=== PATIENT | female | born 1940 | race Caucasian/White ===

== ENCOUNTER 2025-05-15 15:50 | Emergency (ER) | payer OTHER, SELFPAY ==
[2025-05-15 15:54] VITALS: BP 123/65
--- NOTE | 2025-05-15 18:14 | ED.MUSCINJ ---
HPI-Injury
General
Chief Complaint: Fall
Source: patient and family (Son at bedside)
Exam Limitations: none
Time Seen by Provider: 05/15/25 17:52
History of Present Illness-Injury
Initial Injury comments:
84-year-old female with history of recent stroke, now staying with her son who is at bedside and states she got up from the couch earlier today, her she was not on her foot completely and she tripped and fell injuring the left ankle. He states she
struck her forehead but not significantly, there was no loss of consciousness. Her ankle has swollen and she is having difficulty weightbearing. She denies headache, neck pain or any other injury.
Past History
Past History
ED Past Medical History: CVA, GERD, Hypercholesterolemia and Psychiatric (depression)
ED Past Surgical History: Orthopedic
Review of Systems
Review of Systems
Allergies reviewed?: Yes
All Other Systems: ROS reviewed and negative except as documented in HPI and ROS
Musculoskeletal: Reports other (pain and swelling left ankle)
Phy Exam
Physical Exam
Physical Exam:
GENERAL: No acute distress. A&Ox3.
CONSTITUTIONAL: Afebrile.
Head: Normocephalic/atraumatic
EYES: clear, conjunctivae normal
ENMT: moist mucus membranes, Pharynx nl
RESPIRATORY: Regular respirations, nonlabored, lungs clear.
CARDIOVASCULAR: Regular rate and rhythm, no murmurs, no rubs.
GI: Soft, nontender
MUSCULOSKELETAL: Left lateral ankle with mild to moderate swelling and ecchymosis. Distal neurovascular intact. Mildly limited range of motion. Moves with ease. Well perfused. No edema
SKIN: Warm, dry, pink
PSYCH: Normal mood and affect. Well kept, interactive and appropriate
NEUROLOGIC: Awake, alert and oriented. No focal neurological deficits
Injury Course
Orders/Labs/Results
Orders:
Orders
05/15/25 15:59
CR Ankle - Left Min 3 Views Urgent
Comment:
Reason For Exam: Injury
05/15/25 18:14
Nolan Wrap Left-Treatment ONCE
Air Splint Left-Treatment ONCE
Procedures
Splint Check
Splint checked by provider?: Yes
Circulation/Movement/Sensation post splint application: brisk cap refill and full sensation
MDM/Problems Addressed
Differential Diagnosis Includes:
fx vs ST injury left ankle
MDM/Problems Addressed:
84-year-old female with history of recent stroke, now staying with her son who is at bedside and states she got up from the couch earlier today, her she was not on her foot completely and she tripped and fell injuring the left ankle. He states she
struck her forehead but not significantly, there was no loss of consciousness. Her ankle has swollen and she is having difficulty weightbearing. She denies headache, neck pain or any other injury.
X-ray of left ankle initially read by this examiner: No acute bony abnormality, soft tissue swelling noted laterally.
Pt ambulated out with steady gait after nolan wrap and air splint applied
*Pulse Oximetry
SaO2: 99
Oxygen Mode of Delivery: Room air
Patient hypoxic: not evaluated
*Critical Care Note
Total Time (30-74mins, 75-104mins- exclusive of procedures): Not Applicable
ED Attending Note
-
Portions of this chart may have been created with voice recognition software.� Occasional wrong word or��sound alike� substitutions may have occurred due to the inherent limitations of voice recognition software.
Discharge Plan
Departure
Patient Disposition: Home (Routine Discharge)
Date of Disposition: 05/15/25
Time of Disposition: 18:13
Patient with high blood pressure during this ER visit?: No
Condition: Good
Discharge Problem:
Soft tissue injury of left ankle
Instructions: Ankle sprain - ED discharge instructions
Referrals:
Lew Koenig MD [Active, Orthopedics] - As needed
UNKNOWN - PT DOES,NOT KNOW [Family Provider]
Activity Restrictions/Additional Instructions:
As we discussed, wear the Nolan wrap and air splint as needed for comfort and support.
Make an appointment to see the orthopedic doctor if the ankle is not a lot better in 1 week or not 100% better in 3 to 4 weeks.
Tylenol ibuprofen as needed for pain.
Rest as much as you can for the next 2 days with the foot elevated to the level of your heart and cold compress 20 minutes off and on is much as possible while awake.
Interventions
Interventions:
*ED- Fall Risk Assessment Last Done: 05/15/25 16:43
*Nursing Disposition Last Done: 05/15/25 18:52
ED-Musculoskeletal Assessment Last Done: 05/15/25 16:43
Discharge Date and Time
Discharge Date/Time: 05/15/25 20:20
Print Language: UZBEK
[2025-05-15 18:48] VITALS: BP 126/72
== END 2025-05-15 20:20 | disposition home or self-care (01) ==
LOC: EMR 15:50
PROVIDERS: EMERGENCY PHYSICIAN Emergency Medicine
DX: S99.912A Unspecified injury of left ankle, initial encounter (principal); X58.XXXA Exposure to other specified factors, initial encounter; K21.9 Gastro-esophageal reflux disease without esophagitis; E78.00 Pure hypercholesterolemia, unspecified; Z86.73 Personal history of transient ischemic attack (TIA), and cerebral infarction without residual deficits
CPT/HCPCS: 99283; 29515; 73610

== ENCOUNTER 2025-05-19 13:51 | Inpatient (IN) | payer OTHER, SELFPAY ==
[2025-05-19] VITALS (8 sets, daily range): BP systolic 98–146; BP diastolic 48–96; BMI 19.6; BMI 18.6
--- NOTE | 2025-05-19 08:40 | ED.GENMED ---
History of Present Illness
<Kassidy Tom PA-C - Last Filed: 05/19/25 12:24>
General
Chief Complaint: Overdose Unintentional
Source: patient
Exam Limitations: none
Time Seen by Provider: 05/19/25 08:41
Nursing documentation reviewed up to this point in time: agreed with
History of Present Illness
History of Present Illness:
84 Y/O F
h/o frontal stroke february 2025 with cognitive deficits mostly
doing well physically
living with son
has home care and OT
and was just told to try to get her to start seeing if she can do some things on her own, like take her own meds; he fillled a week long pill dispenser box with her meds
this morning pt got up before him, and took all of the pills in the container rather than just today's pills
pt feels fine, she drank coffee and has no complaints
she says 'i don' tknow why i did that. i was n't trying to kill myself'
son says this is her baseline; she has better days than this but this is typical behavior for her
no fatigue, vomiting, abd pain, weakness, wackiness new from baseline
meds ingested:
zyrtec 10 mg #6
ASA 325 mg #6
Atorvastatin 80 mg #6
Senna #12
Famotidine 20 mg #6
Prozac 20 mg #6
metformin 500 mg #6
Past History
<Kassidy Tom PA-C - Last Filed: 05/19/25 12:24>
Past History
ED Past Medical History: CVA, GERD, Hypercholesterolemia and Psychiatric (depression)
ED Past Surgical History: Orthopedic
Social History
Tobacco: Former smoker
Alcohol: None
Drug: None
Personal: Single
Living: with family
Review of Systems
<Kassidy Tom PA-C - Last Filed: 05/19/25 12:24>
Review of Systems
Allergies reviewed?: Yes
All Other Systems: Not applicable
Phy Exam
<Kassidy Tom PA-C - Last Filed: 05/19/25 12:24>
Physical Exam
Physical Exam:
GENERAL: Alert , in no apparent distress eccentric
EYE: pupils equal and reactive
NECK: Supple
ENT: o/p clr, mmm.
CARDIAC: Bradycardic
LUNGS: Clear breath sounds bilaterally, no acute respiratory distress, no wheezes/rales/rhonchi
ABDOMEN: Soft, without focal tenderness, no r/g, no cvat, normal bowel sounds
NEUROLOGICAL: Alert and oriented x 3, no focal neuro deficits; some situational confusion but otherwise nonfocal no deficits
SKIN: Warm and dry, skin intact.
MUSCULOSKELETAL: No edema, well perfused. neg tylor's sign
PSYCH: eccentric
Course
<Kassidy Tom PA-C - Last Filed: 05/19/25 12:24>
Orders/Labs/Results
Orders:
Orders
05/19/25 08:49
Electrocardiogram (*1) Urgent
Reason for Study: QTc Monitoring
EKG- Treatment ONCE
05/19/25 09:42
Acetaminophen Urgent
Alcohol Urgent
Complete Blood Count/With Diff Urgent
Comprehensive Metabolic Panel Urgent
Creatine Phosphokinase Urgent
Lactic Acid Urgent
Lipase Urgent
Comment: ADD ON
Salicylate Urgent
Venous Blood Gas Urgent
%Oxygen/Room Air: 21
05/19/25 10:22
Add On- LAB Urgent
Tests Added?: LIPASE
05/19/25 10:46
0.9% Sodium Chloride 500 ml [Nss] 500 ml IV BOLUS
05/19/25 11:43
US Abdomen Complete/Upper Urgent
Comment:
Reason For Exam: elevated lfts
05/19/25 11:44
Add On- LAB Urgent
Tests Added?: alcohol level
05/19/25 11:54
Acetylcysteine [Acetadote] 8,260 mg 0.45% Sodium Chloride 250 ml [0.45%NaCl] 200 ml IV NOW
05/19/25 13:00
Acetylcysteine [Acetadote] 2,760 mg 0.45% Sodium Chloride 500 ml [0.45%NaCl] 500 ml IV ONCE
05/19/25 13:03
Admit/Transfer Patient As Directed
Co-Sign Provider:
Level of Care: Inpatient admission
Assign to:: Medical/Surgical
Physician / Group: Alfredo
Diagnosis: Transaminitis
Reason for Hospitalization: NAC treatment
Expected length of stay greater than two midnights?: Yes
ELOS- Estimated Length of Stay in days: 3
I certify the patient meets the requirements for IP care: Yes
PRN Pain Medication Management As Directed
May give lesser potent ordered pain med per pt: Yes
preference::
Protocol:: Medication orders for pain may be administered in a
manner that supports deferring to patient preference
when the pt is:
- Requesting an ordered lesser potent pain medication.
Least to most potent pain medications are defined
as: acetaminophen < NSAID < tramadol < opioids
(morphine, oxycodone, hydromorphone).
- Requesting a lesser dose of the same medication IF
ORDERED.
- Requesting a less intrusive route of administration
if both routes are prescribed by the provider (PO <
IV).
05/19/25 13:04
Code Status As Directed
Resuscitation Status: Full Code
05/19/25 13:06
Add On- LAB Urgent
Tests Added?: CPK
Obtain Records As Directed
Dates of Information to be Released: February 2025
Type of Information Requested: Discharge Summary
Lab Results
If Other, list type of info requested: LFTS and Creatinine
Obtain Records from: [facility]
05/19/25 17:00
Acetylcysteine [Acetadote] 5,500 mg 0.45% Sodium Chloride 1000 ml [0.45%NaCl] 1,000 ml IV ONCE
Abnormal Lab Results
05/19/25
09:42
WBC 4.6 L 10^3/uL
(4.8-10.8)
RBC 3.89 L 10^6/uL
(4.20-5.40)
Hgb 11.2 L g/dL
(12.0-16.0)
Hct 34.3 L %
(37.0-47.0)
MCHC 32.7 L g/dL
(33.0-37.0)
Absolute Lymphs (auto) 0.9 L 10^3/uL
(1.2-3.4)
Lymphocytes % 18.6 L %
(20.5-51.1)
Eosinophils % 8.2 H %
(0-6)
VBG pO2 59 H mmHg
(30-50)
Chloride 109 H mmol/L
(98-107)
BUN 41 H mg/dl
(7-17)
Creatinine 1.3 H mg/dL
(0.6-1.0)
Glucose 106 H mg/dl
(70-99)
AST 577 H* U/L
(14-36)
ALT 606 H* U/L
(0-35)
Alkaline Phosphatase 306 H U/L
(38-126)
Acetaminophen < 10 L ug/ml
(10-30)
05/19/25 09:42
05/19/25 09:42
Vital Signs
Initial and Last Documented VS:
Initial Vital Signs
Temp Pulse BP Pulse Ox
98.4 F 61 98/48 95
05/19/25 08:32 05/19/25 08:32 05/19/25 08:32 05/19/25 08:32
Last Documented Vital Signs
Temp Pulse Resp BP Pulse Ox
98.4 F 54 20 133/75 99
05/19/25 08:32 05/19/25 11:21 05/19/25 11:00 05/19/25 11:21 05/19/25 11:21
<Kirk Duckworth, DO - Last Filed: 05/19/25 13:14>
Orders/Labs/Results
Orders:
Orders
05/19/25 08:49
Electrocardiogram (*1) Urgent
Reason for Study: QTc Monitoring
EKG- Treatment ONCE
05/19/25 09:42
Acetaminophen Urgent
Alcohol Urgent
Complete Blood Count/With Diff Urgent
Comprehensive Metabolic Panel Urgent
Creatine Phosphokinase Urgent
Lactic Acid Urgent
Lipase Urgent
Comment: ADD ON
Salicylate Urgent
Venous Blood Gas Urgent
%Oxygen/Room Air: 21
05/19/25 10:22
Add On- LAB Urgent
Tests Added?: LIPASE
05/19/25 10:46
0.9% Sodium Chloride 500 ml [Nss] 500 ml IV BOLUS
05/19/25 11:43
US Abdomen Complete/Upper Urgent
Comment:
Reason For Exam: elevated lfts
05/19/25 11:44
Add On- LAB Urgent
Tests Added?: alcohol level
05/19/25 11:54
Acetylcysteine [Acetadote] 8,260 mg 0.45% Sodium Chloride 250 ml [0.45%NaCl] 200 ml IV NOW
05/19/25 13:00
Acetylcysteine [Acetadote] 2,760 mg 0.45% Sodium Chloride 500 ml [0.45%NaCl] 500 ml IV ONCE
05/19/25 13:03
Admit/Transfer Patient As Directed
Co-Sign Provider:
Level of Care: Inpatient admission
Assign to:: Medical/Surgical
Physician / Group: Alfredo
Diagnosis: Transaminitis
Reason for Hospitalization: NAC treatment
Expected length of stay greater than two midnights?: Yes
ELOS- Estimated Length of Stay in days: 3
I certify the patient meets the requirements for IP care: Yes
PRN Pain Medication Management As Directed
May give lesser potent ordered pain med per pt: Yes
preference::
Protocol:: Medication orders for pain may be administered in a
manner that supports deferring to patient preference
when the pt is:
- Requesting an ordered lesser potent pain medication.
Least to most potent pain medications are defined
as: acetaminophen < NSAID < tramadol < opioids
(morphine, oxycodone, hydromorphone).
- Requesting a lesser dose of the same medication IF
ORDERED.
- Requesting a less intrusive route of administration
if both routes are prescribed by the provider (PO <
IV).
05/19/25 13:04
Code Status As Directed
Resuscitation Status: Full Code
05/19/25 13:06
Add On- LAB Urgent
Tests Added?: CPK
Obtain Records As Directed
Dates of Information to be Released: February 2025
Type of Information Requested: Discharge Summary
Lab Results
If Other, list type of info requested: LFTS and Creatinine
Obtain Records from: [facility]
05/19/25 17:00
Acetylcysteine [Acetadote] 5,500 mg 0.45% Sodium Chloride 1000 ml [0.45%NaCl] 1,000 ml IV ONCE
Abnormal Lab Results
05/19/25
09:42
WBC 4.6 L 10^3/uL
(4.8-10.8)
RBC 3.89 L 10^6/uL
(4.20-5.40)
Hgb 11.2 L g/dL
(12.0-16.0)
Hct 34.3 L %
(37.0-47.0)
MCHC 32.7 L g/dL
(33.0-37.0)
Absolute Lymphs (auto) 0.9 L 10^3/uL
(1.2-3.4)
Lymphocytes % 18.6 L %
(20.5-51.1)
Eosinophils % 8.2 H %
(0-6)
VBG pO2 59 H mmHg
(30-50)
Chloride 109 H mmol/L
(98-107)
BUN 41 H mg/dl
(7-17)
Creatinine 1.3 H mg/dL
(0.6-1.0)
Glucose 106 H mg/dl
(70-99)
AST 577 H* U/L
(14-36)
ALT 606 H* U/L
(0-35)
Alkaline Phosphatase 306 H U/L
(38-126)
Acetaminophen < 10 L ug/ml
(10-30)
05/19/25 09:42
05/19/25 09:42
Vital Signs
Initial and Last Documented VS:
Initial Vital Signs
Temp Pulse BP Pulse Ox
98.4 F 61 98/48 95
05/19/25 08:32 05/19/25 08:32 05/19/25 08:32 05/19/25 08:32
Last Documented Vital Signs
Temp Pulse Resp BP Pulse Ox
98.4 F 54 20 133/75 99
05/19/25 08:32 05/19/25 11:21 05/19/25 11:00 05/19/25 11:21 05/19/25 11:21
<Kassidy Tom PA-C - Last Filed: 05/19/25 12:24>
MDM/Problems Addressed
Differential Diagnosis Includes:
polysubstance OD, acidemia,
MDM/Problems Addressed:
84 y/o F
recent stroke, cognitive deficits
accidentally took 6 days worth of her daily meds loaded into a weekly pill dispenser thismorning
since stroke pt living with son and he takes care of her meds
he doesn't believe she took any tylenol; but it is in the medicine cabinet; son has given occasioanl tylenol to her for headache, last was sabout 3=4 days ago, jsut 2
here awake and alert and her baseline; no abd pain, no vmoiting, no weakness or confusion or sedation
i spoke with dr. buckner from [facility] who recommended repeating salycilate level in 2 hours after first one and mointor for side effects but that after 6 hour obs she could possibly go home
however LFTs are moderately elevated
no known alcohol abuse
at that point considered late tylenol ingestion
son doesn't think so but agreeable to NAC
i spoke back with dr. buckner who felt it necessary
will admit
<Kassidy Tom PA-C - Last Filed: 05/19/25 12:24>
*Pulse Oximetry
SaO2: 95
Oxygen Mode of Delivery: Room air
Patient hypoxic: no (99)
*Critical Care Note
Total Time (30-74mins, 75-104mins- exclusive of procedures): Not Applicable
ED Attending Note
<Kassidy Tom PA-C - Last Filed: 05/19/25 12:24>
-
Portions of this chart may have been created with voice recognition software.� Occasional wrong word or��sound alike� substitutions may have occurred due to the inherent limitations of voice recognition software.
<Kirk Duckworth DO - Last Filed: 05/19/25 13:14>
ED Attending Note
Patient seen and examined by attending physician: Yes
I performed the substantive portion of visit, reviewed & personally made and approve the management plan that is documented in note by myself or ABRAHAM.: Yes
ED Attending Note:
Seen with PA examined independently accidental drug overdose most pronounced abnormalities elevated LFTs with normal acetaminophen PA providers been in contact with poison control/toxicology will be started on Mucomyst, admitted for monitoring
Discharge Plan
Departure
Patient Disposition: Admit
Date of Disposition: 05/19/25
Time of Disposition: 11:43
Admit to: IMU
Presentation/result/management discussed w/ accepting MD/DO: Hospitalist
Condition: Fair
Covid-19: Not Applicable
Discharge Problem:
Transaminitis, Accidental overdose
Prescriptions:
No Action
atorvastatin [Lipitor] 80 mg Tablet
80 mg PO DAILY
sennosides [senna] 8.6 mg Tablet
17.2 mg PO DAILY
acetaminophen [Tylenol] 325 mg Tablet
650 mg PO Q6HPRN PRN (Reason: HEADACHES)
cetirizine [Zyrtec] 10 mg Tablet
10 mg PO DAILY
famotidine [Pepcid] 20 mg Tablet
20 mg PO DAILY
fluoxetine [Prozac] 20 mg Capsule
20 mg PO DAILY
metformin 500 mg Tablet Extended Release 24 Hr
500 mg PO DAILY
aspirin 325 mg Tablet
325 mg PO DAILY
Referrals:
Meir Mendez DO [Family Provider, Nephrology]
Interventions
Interventions:
*Risk Screen - Suicide Last Done: 05/19/25 08:32
*General Assessment Last Done: 05/19/25 08:32
*Neglect/Abuse Screening Last Done: 05/19/25 08:32
Discharge Date and Time
Print Language: GREEK
[2025-05-19 09:54] LABS: Venous Blood Gas B.E. -1.9 mmol/L (-4 to +4); Venous Blood Gas O2 Sat % 91.6 %
[2025-05-19 09:57] LABS: Hematocrit 34.3 % (37.0-47.0); Hemoglobin 11.2 g/dL (12.0-16.0); Mean Corp Hgb Conc. 32.7 g/dL (33.0-37.0); Mean Corpuscular Volume 88.2 fL (81.0-99.0); Nucleated Red Blood Cells % 0 %; Platelet Count 203 10^3/uL (130-400); Red Cell Dist. Width 13.2 % (11.5-14.5)
[2025-05-19 10:06] LABS: ALT (SGPT) 606 U/L (0-35); AST (SGOT) 577 U/L (14-36); Acetaminophen < 10 ug/ml (10-30); Albumin 4.4 g/dl (3.5-5.0); Alkaline Phosphatase 306 U/L (38-126); Blood Urea Nitrogen 41 mg/dl (7-17); Calcium 9.8 mg/dl (8.4-10.2); Carbon Dioxide 24 mmol/L (22-30); Chloride 109 mmol/L (98-107); Estimated Creatinine Clearance 28 ml/min; Glucose 106 mg/dl (70-99); Potassium 4.7 mmol/L (3.5-5.1); Salicylate 17.3 mg/dl (2.0-20.0); Sodium 142 mmol/L (135-145); Total Protein 6.9 g/dl (6.3-8.2); eGFR 40.80
[2025-05-19] MEDS: NSS 500 IV (11:20)
[2025-05-19 11:27] LABS: Lipase 220 U/L (23-300)
--- NOTE | 2025-05-19 12:11 | HPS.HSE ---
Family Physician
-
Family Physician: Meir Mendez
Chief Complaint
-
Accidental Overdose
History of Present Illness
Patient is an 84 y/o female past medical history of recent frontal stroke with residual cognitive impairment, hyperlipidemia, diabetes mellitus and depression who presents following an accidental overdose. Following patient's stroke her son had been
dispensing her medications daily. In an effort to allow patient more independence her son filled a week long pill box with her medications. This morning patient got up before her son and took all the pills in the box instead of just today's pills.
Work-up in the ED revealed significantly elevated AST and ALT. Patient does not drink alcohol and there are no reports that patient took an excessive amount of Tylenol. It does appear that she was recently started on a statin following her stroke
in February. Patient reports no complaints at the present time.
Medical History
Past Medical History
Past Medical History: Reports Other
Additional Past Medical History:
Frontal CVA February 2025
Cognitive Impairment
Diabetes Mellitus, Type II
Hyperlipidemia
Depression
GERD
Past Surgical History: Reports Other
Additional Past Surgical History:
Bilateral Knee Replacements
Social History
Tobacco: Former Smoker (Quit Early 2024)
Alcohol: None
Family History
Family History: Not pertinent
Allergies / Home Medications
Allergies reflects when Allergies were last updated in [facility].
Home Medications with original date entered in [facility]
Allergy/Medication List:
Allergies
Allergy/AdvReac Type Severity Reaction Status Date / Time
No Known Allergies Allergy Unverified 05/15/25 16:00
Home Medications
acetaminophen 325 mg tablet (Tylenol) 650 mg PO Q6HPRN PRN HEADACHES 05/19/25
aspirin 325 mg tablet 325 mg PO DAILY Heart Disease/Condition 05/19/25
atorvastatin 80 mg tablet (Lipitor) 80 mg PO DAILY High Cholesterol 05/19/25
cetirizine 10 mg tablet (Zyrtec) 10 mg PO DAILY Allergies 05/19/25
famotidine 20 mg tablet (Pepcid) 20 mg PO DAILY Gastrointestinal Issue 05/19/25
fluoxetine 20 mg capsule (Prozac) 20 mg PO DAILY Mental Health/Anxiety 05/19/25
metformin 500 mg tablet,extended release 24 hr 500 mg PO DAILY Diabetes 05/19/25
sennosides 8.6 mg tablet (senna) 17.2 mg PO DAILY Constipation 05/19/25
Review of Systems
-
Unable to obtain full review of systems at this time due to: Other (Cognitive Impairment)
Physical Exam
Vital Signs
Vital Signs
Temp Pulse Resp BP Pulse Ox
98.4 F 54 20 133/75 99
05/19/25 08:32 05/19/25 11:21 05/19/25 11:00 05/19/25 11:21 05/19/25 11:21
Physical Exam
General: Comfortable and Conversant
HEENT: Anicteric and Moist mucous membranes
Respiratory: Clear and Non Labored Respirations
Cardiac: S1/S2 and Regular Rhythm
GI: Soft, Non Tender and Normal Bowel Sounds
Rectal: Deferred by Provider
Musculoskeletal: No Clubbing, No Cyanosis and No Edema
Skin: Warm and Dry
Neuro: Awake, Alert and No Motor Deficits
Psych: Calm
Laboratory Results
-
05/19/25 09:42
05/19/25 09:42
Laboratory Results
Lactic Acid 0.9 mmol/L (0.7-2.0) 05/19/25 09:42
Total Bilirubin 1.0 mg/dl (0.2-1.3) 05/19/25 09:42
AST 577 U/L (14-36) H* 05/19/25 09:42
ALT 606 U/L (0-35) H* 05/19/25 09:42
Alkaline Phosphatase 306 U/L (38-126) H 05/19/25 09:42
Lipase 220 U/L (23-300) 05/19/25 09:42
Data Reviewed
-
Lab Data: Labs Reviewed by me
Old Records: Reviewed
Impression/Plan
-
Transaminitis, unclear etiology
-ED reviewed with Toxicology who recommended NAC
-Hold atorvastatin
-Trend LFTs
-Repeat Salicylate and Tylenol Level in AM
Elevated Creatinine, possible ENRIQUE
-Obtain records from [place] for baseline creatinine
-Hold metformin
-Repeat creatinine in AM
Frontal CVA February 2025 with Residual Cognitive Impairment
-Hold aspirin for now
-Attempt to obtain records from [place] as to why patient is on full strength aspirin
Diabetes Mellitus, Type II
-Hold metformin
-Monitor sugars and continue coverage insulin
Hyperlipidemia
-Statin on hold
Depression
-Hold Prozac
GERD
-Hold Pepcid
DVT proph: SC Heparin
Code Status: Full Code
[2025-05-19] MEDS: ACETADOTE 241.3 MG IV (12:57)
--- NOTE | 2025-05-19 14:03 | CM ---
CM reviewed chart and met with pt bedside in ED. I also spoke to her son Enoch on the phone,
Pt has been living with Enoch and his Maribel since she had a CVA in February. Prior to that she was living alone in [place].
Son's home is Multistory home, first floor half BA, second floor BR/full BA
Independent in ADLs, personal care and ambulation at baseline. No DME.
Has been getting home PT/OT/ST, son told me the plan was to transition to outpatient therapy. He is not sure which agency they are using. No hx SNF
Enoch said plan was for her to eventually return to her home but he is not sure that is a realistic goal.
He and his work part time flexible clerk and have been using vacation time to be home with his mother.
He has looked in to Adult Day Cares and also some private caregiver agencies but has not found one yet.
He does state that finances are limited.
Discussed LTC, made him aware the cost would be out of pocket unless she qualifies for Medical Assistance.
I gave him the number for [facility] on [facility] along with list of private caregiver agencies.
PCP: Meir Guerrero
Pharmacy: [facility] (pt was using [facility] in [place])
Discharge plan: Anticipate home pending ongoing medical evaluation
--- NOTE | 2025-05-19 14:07 | W.PN.UPDATE ---
Update Note
Progress Note Update
This is an addendum to H&P written by Krista Jones on 05/19/2025. Patient seen and examined independently with PA.
84-year-old female past medical history of frontal CVA in February, chronic cognitive impairment, diabetes, hyperlipidemia, anxiety/depression, presenting with accidentally taking a weeks worth of her medications today due to confusion which is
chronic. No acute symptoms apart from some diarrhea today.
Labs show leukopenia, hemoglobin 11.2. VBG unremarkable. Labs show significant transaminitis hepatocellular pattern.
Salicylates and Tylenol level negative. Alcohol level negative.
EKG showed sinus bradycardia with first-degree AV block. QTc of 390. Creatinine 1.3.
Patient with transaminitis with concern for Tylenol overdose/statin overdose, and diarrhea secondary to senna overdose. Mild ENRIQUE. Toxicology recommended NAC and repeating salicylate and Tylenol level which can be done tomorrow. Recheck LFTs
tomorrow morning. Continue IV fluids. Hold all oral medications for now.
[2025-05-19] MEDS: ACETADOTE 513.8 MG IV (14:13)
--- NOTE | 2025-05-19 14:20 | ED.GENMED ---
History of Present Illness
General
Chief Complaint: Overdose Unintentional
Source: patient and family
Exam Limitations: none
Time Seen by Provider: 05/19/25 08:41
Nursing documentation reviewed up to this point in time: agreed with
Past History
Past History
ED Past Medical History: CVA, GERD, Hypercholesterolemia and Psychiatric (depression)
ED Past Surgical History: Orthopedic
Social History
Tobacco: Former smoker
Alcohol: None
Drug: None
Personal: Single
Living: with family
Course
Orders/Labs/Results
Orders:
Orders
05/19/25 08:49
Electrocardiogram (*1) Urgent
Reason for Study: QTc Monitoring
EKG- Treatment ONCE
05/19/25 09:42
Acetaminophen Urgent
Alcohol Urgent
Complete Blood Count/With Diff Urgent
Comprehensive Metabolic Panel Urgent
Creatine Phosphokinase Urgent
Comment: ADD ON
Lactic Acid Urgent
Lipase Urgent
Comment: ADD ON
Salicylate Urgent
Venous Blood Gas Urgent
%Oxygen/Room Air: 21
05/19/25 10:22
Add On- LAB Urgent
Tests Added?: LIPASE
05/19/25 10:46
0.9% Sodium Chloride 500 ml [Nss] 500 ml IV BOLUS
05/19/25 11:43
US Abdomen Complete/Upper Urgent
Comment:
Reason For Exam: elevated lfts
05/19/25 11:44
Add On- LAB Urgent
Tests Added?: alcohol level
05/19/25 11:54
Acetylcysteine [Acetadote] 8,260 mg 0.45% Sodium Chloride 250 ml [0.45%NaCl] 200 ml IV NOW
05/19/25 13:00
Acetylcysteine [Acetadote] 2,760 mg 0.45% Sodium Chloride 500 ml [0.45%NaCl] 500 ml IV ONCE
05/19/25 13:03
Admit/Transfer Patient As Directed
Co-Sign Provider:
Level of Care: Inpatient admission
Assign to:: Medical/Surgical
Physician / Group: Alfredo
Diagnosis: Transaminitis
Reason for Hospitalization: NAC treatment
Expected length of stay greater than two midnights?: Yes
ELOS- Estimated Length of Stay in days: 3
I certify the patient meets the requirements for IP care: Yes
PRN Pain Medication Management As Directed
May give lesser potent ordered pain med per pt: Yes
preference::
Protocol:: Medication orders for pain may be administered in a
manner that supports deferring to patient preference
when the pt is:
- Requesting an ordered lesser potent pain medication.
Least to most potent pain medications are defined
as: acetaminophen < NSAID < tramadol < opioids
(morphine, oxycodone, hydromorphone).
- Requesting a lesser dose of the same medication IF
ORDERED.
- Requesting a less intrusive route of administration
if both routes are prescribed by the provider (PO <
IV).
05/19/25 13:04
Code Status As Directed
Resuscitation Status: Full Code
05/19/25 13:06
Add On- LAB Urgent
Tests Added?: CPK
Obtain Records As Directed
Dates of Information to be Released: February 2025
Type of Information Requested: Discharge Summary
Lab Results
If Other, list type of info requested: LFTS and Creatinine
Obtain Records from: [facility]
05/19/25 17:00
Acetylcysteine [Acetadote] 5,500 mg 0.45% Sodium Chloride 1000 ml [0.45%NaCl] 1,000 ml IV ONCE
Abnormal Lab Results
05/19/25
09:42
WBC 4.6 L 10^3/uL
(4.8-10.8)
RBC 3.89 L 10^6/uL
(4.20-5.40)
Hgb 11.2 L g/dL
(12.0-16.0)
Hct 34.3 L %
(37.0-47.0)
MCHC 32.7 L g/dL
(33.0-37.0)
Absolute Lymphs (auto) 0.9 L 10^3/uL
(1.2-3.4)
Lymphocytes % 18.6 L %
(20.5-51.1)
Eosinophils % 8.2 H %
(0-6)
VBG pO2 59 H mmHg
(30-50)
Chloride 109 H mmol/L
(98-107)
BUN 41 H mg/dl
(7-17)
Creatinine 1.3 H mg/dL
(0.6-1.0)
Glucose 106 H mg/dl
(70-99)
AST 577 H* U/L
(14-36)
ALT 606 H* U/L
(0-35)
Alkaline Phosphatase 306 H U/L
(38-126)
Acetaminophen < 10 L ug/ml
(10-30)
05/19/25 09:42
05/19/25 09:42
Vital Signs
Initial and Last Documented VS:
Initial Vital Signs
Temp Pulse BP Pulse Ox
36.9 C 61 98/48 95
05/19/25 08:32 05/19/25 08:32 05/19/25 08:32 05/19/25 08:32
Last Documented Vital Signs
Temp Pulse Resp BP Pulse Ox
36.9 C 57 20 133/75 96
05/19/25 08:32 05/19/25 14:48 05/19/25 11:00 05/19/25 11:21 05/19/25 14:56
MDM/Problems Addressed
Differential Diagnosis Includes:
accidental overdose, confusion, infection
MDM/Problems Addressed:
84 y/o F CVA 02/2025 with cognitive deficits; lives w son
accidental polysubstance OD this am;due to cognifitve deficits
we do not believe she really got into any other medications, just the ones from her weekly pill dispenser that son just filled yesterday
but there is tylenol in the cabinet that is accessible; son doesn't think she got into it
no alcohol use
awakea nd alert, quirky but this is her baseline after stroke
no symptoms
no vomiting
bp stable for her low 90s
labs show chel and trasnamitiis, no known history of;
consulted tox at [facility]
unexplained LFT elevation; tyl level neg but just in case, admit for iv NAC; trend ASA level, LFTs;
(dr. buckner at [facility])
*Pulse Oximetry
SaO2: 99
Oxygen Mode of Delivery: Room air
ED Attending Note
-
Portions of this chart may have been created with voice recognition software.� Occasional wrong word or��sound alike� substitutions may have occurred due to the inherent limitations of voice recognition software.
Discharge Plan
Departure
Patient Disposition: Admit
Date of Disposition: 05/19/25
Time of Disposition: 11:43
Admit to: IMU
Presentation/result/management discussed w/ accepting MD/DO: Hospitalist
Condition: Fair
Covid-19: Not Applicable
Discharge Problem:
Transaminitis, Accidental overdose
Interventions
Interventions:
*Risk Screen - Suicide Last Done: 05/19/25 08:32
*General Assessment Last Done: 05/19/25 08:32
*Neglect/Abuse Screening Last Done: 05/19/25 08:32
*ED- Fall Risk Assessment Last Done: 05/19/25 14:46
*ED COVID-19 Vaccine History Last Done: 05/19/25 14:46
ED- Cardiac Assessment Last Done: 05/19/25 14:56
ED- Neurological Assessment Last Done: 05/19/25 14:56
ED- Pulmonary Assessment Last Done: 05/19/25 14:56
--- NOTE | 2025-05-19 16:03 | PTCARENOTE ---
pt admitted from ED to room 437-02. pt ambulated from stretcher to bed with 1 assist, slightly unsteady on feet. standing scale weight obtained. pt confused at baseline, able to answer orientation questions correctly. bed alarm in place. pt denies
pain or discomfort.
[2025-05-19] MEDS: HEPARIN 5000 UNITS SC (16:25)
[2025-05-19] MEDS: NSS 1000 IV (17:15)
[2025-05-19 17:19] LABS: Glucose - Point of Care 115 mg/dl (70-99)
[2025-05-19] MEDS: NOVOLOG FLEXPEN-LOW RESISTANCE SC (17:29)
[2025-05-19] MEDS: ACETADOTE 1027.5 MG IV (18:23)
[2025-05-19 21:40] LABS: Glucose - Point of Care 176 mg/dl (70-99)
[2025-05-20] MEDS: HEPARIN 5000 UNITS SC ×3 (00:17→15:46)
[2025-05-20] MEDS: NSS 1000 IV ×2 (04:45→15:46)
[2025-05-20 07:28] LABS: Hematocrit 29.8 % (37.0-47.0); Hemoglobin 9.8 g/dL (12.0-16.0); Mean Corp Hgb Conc. 32.9 g/dL (33.0-37.0); Mean Corpuscular Volume 87.4 fL (81.0-99.0); Platelet Count 180 10^3/uL (130-400); Red Cell Dist. Width 13.2 % (11.5-14.5)
[2025-05-20 07:38] LABS: INR 1.15; PT 15.0 Sec (11.4-14.6)
[2025-05-20 07:54] LABS: ALT (SGPT) 411 U/L (0-35); AST (SGOT) 281 U/L (14-36); Acetaminophen < 10 ug/ml (10-30); Albumin 3.4 g/dl (3.5-5.0); Alkaline Phosphatase 251 U/L (38-126); Blood Urea Nitrogen 25 mg/dl (7-17); Calcium 9.2 mg/dl (8.4-10.2); Carbon Dioxide 22 mmol/L (22-30); Chloride 114 mmol/L (98-107); Estimated Creatinine Clearance 39 ml/min; Glucose 79 mg/dl (70-99); Potassium 3.9 mmol/L (3.5-5.1); Salicylate 3.3 mg/dl (2.0-20.0); Sodium 141 mmol/L (135-145); Total Protein 5.7 g/dl (6.3-8.2); eGFR > 60.00
[2025-05-20 08:00] VITALS: BP 165/62
[2025-05-20 08:10] LABS: Glycohemoglobin (HgbA1c) 6.3 % (4.0-5.6)
[2025-05-20 08:19] LABS: Glucose - Point of Care 87 mg/dl (70-99)
[2025-05-20] MEDS: NOVOLOG FLEXPEN-LOW RESISTANCE SC ×2 (08:21→15:51)
--- NOTE | 2025-05-20 10:02 | PTOTSP ---
Speech Therapy Evaluation:
Pt with chronic risk factor of dysphagia including hx of CVA with residual cognitive deficits, compounded by accidental OD. Pt presents with grossly functional oropharyngeal swallow. No overt s/sx of aspiration, pt afebrile, on room air, and without
hx of dysphagia intervention. No chest imaging completed this admission.
Recommend:
1. Cont. regular solids and thin liquids
2. Medications as tolerated
3. General aspiration precautions
4. ROOFING LABORER to s/o - please reconsult as indicated
[2025-05-20 11:09] VITALS: BP 137/65; BP 165/62; PULSE 68; O2SAT 98
[2025-05-20 12:25] LABS: Glucose - Point of Care 158 mg/dl (70-99)
--- NOTE | 2025-05-20 12:32 | W.PN.HOSP.TC ---
Today's Communication/Plan
-
follow labs in AM
possible dc in 24 hours
home VN
Assessment / Plan
Assessment / Plan
Assessment:
Acute transaminitis
- likely from overdose on Statin; on hold
- s/p NAC protocol with Tylenol/Salicylates unremarkable now
- follow LFTs
- US without acute abd pathology
Acute diarrhea
- from Senna OD
ENRIQUE, likely from diarrhea and acute overdose
- continue IVF
- monitor labs
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
- Hold aspirin for now
Diabetes Mellitus, Type II
- Hold metformin
- Monitor sugars and continue coverage insulin
Hyperlipidemia
- statin on hold for transaminitis
Depression
- Prozac
GERD
- Pepcid
DVT proph: SC Heparin
Code Status: Full Code
Anticipated Discharge: Within 24 hours
Subjective/Interval History
-
Date of Service: May 20, 2025
resting comfortably, no complaints at present
Objective Data
-
Labs:
Laboratory Results
05/20/25
06:58
WBC 4.2 L
Hgb 9.8 L
Hct 29.8 L
Plt Count 180
PT 15.0 H
INR 1.15
Sodium 141
Potassium 3.9
Chloride 114 H
Carbon Dioxide 22
BUN 25 H
Creatinine 0.9
Glucose 79
Calcium 9.2
Total Bilirubin 0.8
AST 281 H
ALT 411 H
Alkaline Phosphatase 251 H
Vital Signs:
Vital Signs
Temp Pulse Resp BP Pulse Ox
98.3 F 56 16 165/62 97
05/20/25 08:00 05/20/25 08:00 05/20/25 08:00 05/20/25 08:00 05/20/25 08:00
I&O
05/19/25 05/20/25 05/21/25
06:59 06:59 06:59
Intake Total 2319
Balance 2319
Physical Exam
-
General: No Apparent Distress
HEENT: Normocephalic and Atraumatic
Respiratory: Negative Wheezes
Cardiac: Regular Rhythm and S1/S2
GI: Soft
Genito-urinary: No Costovertebral Tender
Neuro: AO x 3
Hematologic / Lymphatic: No Lymphadenopathy
Psych: Calm
Data Reviewed
-
Total Time Spent with Patient (in minutes): 42
Labs: Labs Reviewed by me
[2025-05-20] MEDS: NOVOLOG FLEXPEN-LOW RESISTANCE 1 UNITS SC (12:57)
[2025-05-20] MEDS: PROZAC 20 MG PO (12:58)
[2025-05-20] MEDS: ASPIRIN 325 MG PO (12:58)
--- NOTE | 2025-05-20 13:34 | CM ---
Addendum entered by Judy Goode 05/20/25 14:42:
[facility]/[place]
[phone]

Original Note:
Chart reviewed and protective services case worker met with patient and son at bedside, and spoke with patient's daughter in law by phone, per family patient has [facility], and adult daycare at discharge, patient's son has reviewed some assisted livings,
Arnav Velázquez and Ivis Conte, per family they are going to the [facility] for the weekend and they have a nurse from [facility] coming to house on Sunday at 3:30pm to review patient for services. Referral sent to [place]
[facility].
Plan; Home with family and [facility].
[2025-05-20 15:51] LABS: Glucose - Point of Care 131 mg/dl (70-99)
[2025-05-20 16:00] VITALS: BP 113/66
[2025-05-20 21:25] LABS: Glucose - Point of Care 176 mg/dl (70-99)
[2025-05-20 23:39] VITALS: BP 169/67
[2025-05-21] MEDS: HEPARIN 5000 UNITS SC ×4 (00:17→23:23)
[2025-05-21] MEDS: NSS 1000 IV (04:42)
[2025-05-21 06:22] LABS: Hematocrit 30.5 % (37.0-47.0); Hemoglobin 9.9 g/dL (12.0-16.0); Mean Corp Hgb Conc. 32.5 g/dL (33.0-37.0); Mean Corpuscular Volume 89.2 fL (81.0-99.0); Platelet Count 199 10^3/uL (130-400); Red Cell Dist. Width 13.2 % (11.5-14.5)
[2025-05-21 06:52] LABS: ALT (SGPT) 591 U/L (0-35); AST (SGOT) 489 U/L (14-36); Albumin 3.6 g/dl (3.5-5.0); Alkaline Phosphatase 388 U/L (38-126); Blood Urea Nitrogen 13 mg/dl (7-17); Calcium 9.2 mg/dl (8.4-10.2); Carbon Dioxide 24 mmol/L (22-30); Chloride 113 mmol/L (98-107); Estimated Creatinine Clearance 39 ml/min; Glucose 91 mg/dl (70-99); Potassium 4.0 mmol/L (3.5-5.1); Sodium 142 mmol/L (135-145); Total Protein 5.8 g/dl (6.3-8.2); eGFR > 60.00
[2025-05-21 07:40] LABS: Glucose - Point of Care 83 mg/dl (70-99)
[2025-05-21] MEDS: NOVOLOG FLEXPEN-LOW RESISTANCE SC ×3 (07:46→16:18)
[2025-05-21 07:57] VITALS: BP 129/58
[2025-05-21] MEDS: PEPCID 20 MG PO (08:29)
[2025-05-21] MEDS: GLUCOPHAGE XR EXTENDED RELEASE 500 MG PO (08:29)
[2025-05-21] MEDS: ASPIRIN 325 MG PO (08:29)
[2025-05-21] MEDS: PROZAC 20 MG PO (08:29)
[2025-05-21 11:23] LABS: Glucose - Point of Care 124 mg/dl (70-99)
--- NOTE | 2025-05-21 13:08 | CM ---
Patient to return to home with son, daughter in law and visiting nurses from [facility].
[facility]
[phone]
--- NOTE | 2025-05-21 13:40 | W.PN.HOSP.TC ---
Today's Communication/Plan
-
await GI evaluation
Assessment / Plan
Assessment / Plan
Assessment:
Acute transaminitis
- US without acute abd pathology
- likely from overdose on Statin; on hold
- s/p NAC protocol with Tylenol/Salicylates unremarkable now
- follow LFTs - have risen over past 24 hours. will consult GI. Consider additional NAC.
Acute diarrhea
- from Senna OD
ENRIQUE, likely from diarrhea and acute overdose
- continue IVF
- monitor labs
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
- continue daily (high dose) aspirin
Diabetes Mellitus, Type II
- Hold metformin
- Monitor sugars and continue coverage insulin
Hyperlipidemia
- statin on hold for transaminitis
Depression
- Prozac on hold
GERD
- Pepcid
DVT proph: SC Heparin
Code Status: Full Code
Anticipated Discharge: 24 - 48 hours
Subjective/Interval History
-
Date of Service: May 21, 2025
resting comfortably
no complaints
Objective Data
-
Labs:
Laboratory Results
05/21/25
05:50
WBC 3.9 L
Hgb 9.9 L
Hct 30.5 L
Plt Count 199
Sodium 142
Potassium 4.0
Chloride 113 H
Carbon Dioxide 24
BUN 13
Creatinine 0.9
Glucose 91
Calcium 9.2
Total Bilirubin 0.7
AST 489 H
ALT 591 H*
Alkaline Phosphatase 388 H
Vital Signs:
Vital Signs
Temp Pulse Resp BP Pulse Ox
98.3 F 54 16 129/58 98
05/21/25 07:57 05/21/25 07:57 05/21/25 07:57 07/03/25 07:57 05/21/25 08:00
I&O
05/20/25 05/21/25 05/22/25
06:59 06:59 06:59
Intake Total 2319
Balance 2319
Physical Exam
-
General: No Apparent Distress
HEENT: Normocephalic and Atraumatic
Respiratory: Negative Wheezes
Cardiac: Regular Rhythm and S1/S2
GI: Soft and Nontender
Musculoskeletal: No Edema
Neuro: AO x 3
Psych: Calm
Data Reviewed
-
Total Time Spent with Patient (in minutes): 41
Labs: Labs Reviewed by me
[2025-05-21 15:20] VITALS: BP 148/58
--- NOTE | 2025-05-21 15:29 | CON.GI ---
Consultation
-
Date/Time Consultation Requested: 05/21/25
Date/Time Consultation Performed: 05/21/25
Requesting Provider: Dr. Chávez
Performing Provider: Dr. Jimenez
Reason for Consultation: Elevated LFTs/DILI
Medical History
Chief Complaint / HPI
Chief Complaint: Statin/Senna Overdose, elevated LFTs
History of Present Illness:
Macrina Coto is an 84 y.o. female with pmhx recent CVA, HLD, DM2, depression admitted following an accidental overdose of her statin medication as well as senna. She reports her son takes care of her, but she accidentally took a handful of her
pills before her son woke up. He brought her into the ER for further evaluation, transaminses were found to be significantly elevated, no signs of acute liver failure. She was given NAC, which has completed. GI consulted due to persistantly elevated
LFTs. Etoh, Salicyclate and Acetaminophen levels all undetectable. She was having some diarrhea attributed to the senna OD, which has since improved. Otherwise, she is asymptomatic from a GI perspective.
BUN 41/Cr. 1.3 --> 13/0.9
Tbili 1.0 --> 0.8 --> 0.7
AST 577 --> 281---> 489
ALT 606 --> 411 --> 591
Alk phos 306 --> 251 --> 388
CK 68
Lactate 0.9
INR 1.15
Hgb 11.2 --> 9.8 --> 9.9
WBC 3.9
Plt 199
Abdominal US 05/19/25:
1. No evidence of cholelithiasis, acute cholecystitis, or biliary ductal dilation.
2. Benign adenomyomatosis, cholesterolosis within the gallbladder. No evidence of cholelithiasis, or acute cholecystitis.
3. Common bile duct measures 7 mm in diameter, likely top normal. Correlate with total bilirubin levels to exclude biliary obstruction.
4. Patent vasculature
Past Medical History
Past Medical History: Other (Frontal CVA February 2025, Cognitive Impairment, Diabetes Mellitus Type II, Hyperlipidemia, Depression, GERD)
Past Surgical History: Other (b/l knee replacements)
Social History
Tobacco: Former Smoker (Quit in early 2024)
Alcohol: None
Drug: None
Living: With Family
Family History
Family History: Reviewed & Not Pertinent
Allergies / Home Medications
Allergy/AdvReac Type Severity Reaction Status Date / Time
No Known Allergies Allergy Unverified 05/15/25 16:00
�Medication �Instructions �Recorded
acetaminophen 325 mg tablet 650 mg PO Q6HPRN PRN HEADACHES 05/19/25
(Tylenol)
aspirin 325 mg tablet 325 mg PO DAILY Heart 05/19/25
Disease/Condition
atorvastatin 80 mg tablet (Lipitor) 80 mg PO DAILY High Cholesterol 05/19/25
cetirizine 10 mg tablet (Zyrtec) 10 mg PO DAILY Allergies 05/19/25
famotidine 20 mg tablet (Pepcid) 20 mg PO DAILY Gastrointestinal 05/19/25
Issue
fluoxetine 20 mg capsule (Prozac) 20 mg PO DAILY Mental 05/19/25
Health/Anxiety
metformin 500 mg tablet,extended 500 mg PO DAILY Diabetes 05/19/25
release 24 hr
sennosides 8.6 mg tablet (senna) 17.2 mg PO DAILY Constipation 05/19/25
Review of Systems
-
All other systems: A 12 pt ROS was Negative except as stated above in HPI
Vital Signs
Temp Pulse Resp BP Pulse Ox
98.1 F 62 16 148/58 97
05/21/25 15:20 05/21/25 15:20 05/21/25 15:20 05/21/25 15:20 05/21/25 15:20
Physical Exam
Exam
General: Well Developed, Well Nourished and No Apparent Distress
GI: Soft, Non Tender, Non Distended and Normal Bowel Sounds
Results
WBC 3.9 10^3/uL (4.8-10.8) L 05/21/25 05:50
Hgb 9.9 g/dL (12.0-16.0) L 05/21/25 05:50
Hct 30.5 % (37.0-47.0) L 05/21/25 05:50
MCV 89.2 fL (81.0-99.0) 05/21/25 05:50
Plt Count 199 10^3/uL (130-400) 05/21/25 05:50
Absolute Neuts (auto) 3.0 10^3/uL (1.4-6.5) 05/19/25 09:42
PT 15.0 Sec (11.4-14.6) H 05/20/25 06:58
INR 1.15 05/20/25 06:58
Sodium 142 mmol/L (135-145) 05/21/25 05:50
Potassium 4.0 mmol/L (3.5-5.1) 05/21/25 05:50
Chloride 113 mmol/L (98-107) H 05/21/25 05:50
Carbon Dioxide 24 mmol/L (22-30) 05/21/25 05:50
BUN 13 mg/dl (7-17) 05/21/25 05:50
Creatinine 0.9 mg/dL (0.6-1.0) 05/21/25 05:50
Calcium 9.2 mg/dl (8.4-10.2) 05/21/25 05:50
Total Bilirubin 0.7 mg/dl (0.2-1.3) 05/21/25 05:50
AST 489 U/L (14-36) H 05/21/25 05:50
ALT 591 U/L (0-35) H* 05/21/25 05:50
Alkaline Phosphatase 388 U/L (38-126) H 05/21/25 05:50
Lipase 220 U/L (23-300) 05/19/25 09:42
Diagnostic Image Results:
Prior GI Procedures:
EGD:
Colonoscopy:
Assessment / Plan
-
84 y.o. female with recent CVA admitted following accidental overdose on senna and statin. Given NAC in ED, completed 05/20. No signs of SENIOR CARE.
Plan:
-s/p treatment with NAC; will give additional NAC, bag 3 now to see if any additional improvement
-abdominal US with patent vasculature, no evidence of GB/biliary pathology to account for elevated LFTs
-ENRIQUE and diarrhea improving-- suspect related to senna
-acute hepatocellular injury 2/2 DILI, persistent elevation in transaminases, hopefully plateaued today and will see improvement tomorrow
-hold all hepatotoxic meds
Data Reviewed
-
Ultrasound: Report Reviewed by me
-
-
Thank you for consultation and allowing me to participate in the patient's care. Please call the career information specialist GI physician during the after hours with any questions or concerns.
[2025-05-21 16:17] LABS: Glucose - Point of Care 132 mg/dl (70-99)
[2025-05-21] MEDS: ACETADOTE 1026.1 MG IV (16:19)
[2025-05-21 21:35] LABS: Glucose - Point of Care 113 mg/dl (70-99)
[2025-05-21 23:38] VITALS: BP 182/78
[2025-05-22 06:52] LABS: Hematocrit 34.9 % (37.0-47.0); Hemoglobin 11.4 g/dL (12.0-16.0); Mean Corp Hgb Conc. 32.7 g/dL (33.0-37.0); Mean Corpuscular Volume 87.7 fL (81.0-99.0); Platelet Count 227 10^3/uL (130-400); Red Cell Dist. Width 13.0 % (11.5-14.5)
[2025-05-22 06:56] LABS: Glucose - Point of Care 121 mg/dl (70-99)
[2025-05-22 07:36] LABS: ALT (SGPT) 633 U/L (0-35); AST (SGOT) 486 U/L (14-36); Albumin 4.1 g/dl (3.5-5.0); Alkaline Phosphatase 445 U/L (38-126); Blood Urea Nitrogen 12 mg/dl (7-17); Calcium 9.9 mg/dl (8.4-10.2); Carbon Dioxide 25 mmol/L (22-30); Chloride 107 mmol/L (98-107); Estimated Creatinine Clearance 44 ml/min; Glucose 116 mg/dl (70-99); Potassium 4.0 mmol/L (3.5-5.1); Sodium 141 mmol/L (135-145); Total Protein 6.5 g/dl (6.3-8.2); eGFR > 60.00
[2025-05-22 07:59] VITALS: BP 140/57
[2025-05-22] MEDS: NOVOLOG FLEXPEN-LOW RESISTANCE SC ×3 (08:14→16:29)
[2025-05-22] MEDS: PEPCID 20 MG PO (08:15)
[2025-05-22] MEDS: HEPARIN 5000 UNITS SC ×2 (08:15→21:47)
[2025-05-22] MEDS: ASPIRIN 325 MG PO (08:16)
[2025-05-22] MEDS: GLUCOPHAGE XR EXTENDED RELEASE 500 MG PO (08:16)
--- NOTE | 2025-05-22 08:21 | W.PN.GI.CBS2 ---
Addendum entered and electronically signed by Kassidy Jimenez, 05/22/25 14:18:
Discussed case with hepatology at [facility]. In agreement with additional bag of NAC that is currently running. No additional input to offer and no indication to transfer at this time.
Original Note:
Today's Communication / Plan
-
Continue to trend LFTs. NAC gtt. Monitor for signs of MAIDA.
Assessment / Plan
-
84 y.o. female with recent CVA admitted following accidental overdose on senna and statin. Given NAC in ED, completed 05/20. No signs of GROUP HOME.
Tbili 1.0 --> 0.8 --> 0.7--> 0.7
AST 577 --> 281---> 489--> 486
ALT 606 --> 411 --> 591 --> 633
Alk phos 306 --> 251 --> 388 --> 445
Plan:
-s/p treatment with NAC; additional NAC running for total of 16 hours, will complete today
-Transaminases rising overnight, continue to trend and monitor for signs of fulminant liver failure (none currently present)
-abdominal US with patent vasculature, no evidence of GB/biliary pathology to account for elevated LFTs
-ENRIQUE and diarrhea improving-- suspect related to senna
-acute hepatocellular injury 2/2 DILI, persistent elevation in transaminases
-hold all hepatotoxic meds
-Coags added to todays labs
Subjective
Subjective
Date of Service: May 22, 2025
Patient seen in follow-up. Transaminases slightly worse today. Started additional bag of NAC yesterday. Patient has no complaints this morning, resting comfortably. Diarrhea improving.
Objective
Data Reviewed
Laboratory Data:
Laboratory Results
05/22/25 06:42
05/22/25 06:42
Laboratory Results
PT 15.0 Sec (11.4-14.6) H 05/20/25 06:58
INR 1.15 05/20/25 06:58
Total Bilirubin 0.7 mg/dl (0.2-1.3) 05/22/25 06:42
AST 486 U/L (14-36) H 05/22/25 06:42
ALT 633 U/L (0-35) H* 05/22/25 06:42
Alkaline Phosphatase 445 U/L (38-126) H 05/22/25 06:42
Lipase 220 U/L (23-300) 05/19/25 09:42
Vital Signs and I&O:
Vital Signs
Temp Pulse Resp BP Pulse Ox
98.2 F 57 17 140/57 98
05/22/25 07:59 05/22/25 07:59 05/22/25 07:59 05/22/25 07:59 05/22/25 07:59
I&O
05/21/25 05/22/25 05/23/25
06:59 06:59 06:59
Intake Total 2119
Balance 2119
Physical Exam
Physical Exam
General: Well Developed, Well Nourished and No Apparent Distress
GI: Soft, Non Tender, Non Distended and Normal Bowel Sounds
Skin: No jaundice
NEUR: No asterixes
[2025-05-22 09:01] LABS: INR 1.03; PT 13.8 Sec (11.4-14.6)
[2025-05-22 10:46] LABS: Glucose - Point of Care 104 mg/dl (70-99)
--- NOTE | 2025-05-22 11:56 | W.PN.HOSP.TC ---
Today's Communication/Plan
-
follow AM LFTs
Assessment / Plan
Assessment / Plan
Assessment:
Acute transaminitis
- US without acute abd pathology
- likely from overdose on Statin; on hold
- avoid all hepatotoxic meds
- s/p NAC protocol with Tylenol/Salicylates unremarkable now
- additional NAC given 05/21 for rising LFTs
- follow LFTs
- monitor for signs of PENITENTIARY
- appreciate GI input
Acute diarrhea
- from Senna OD; on hold
ENRIQUE, likely from diarrhea and acute overdose
- continue IVF
- monitor labs
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
- continue daily (high dose) aspirin
Diabetes Mellitus, Type II
- Hold metformin
- Monitor sugars and continue coverage insulin
Hyperlipidemia
- statin on hold for transaminitis
Depression
- Prozac on hold
GERD
- Pepcid
DVT proph: SC Heparin
Code Status: Full Code
Anticipated Discharge: 24 - 48 hours
Subjective/Interval History
-
Date of Service: May 22, 2025
resting comfortably, no complaints
Objective Data
-
Labs:
Laboratory Results
05/22/25 05/22/25
06:42 08:37
WBC 4.7 L
Hgb 11.4 L
Hct 34.9 L
Plt Count 227
PT 13.8
INR 1.03
Sodium 141
Potassium 4.0
Chloride 107
Carbon Dioxide 25
BUN 12
Creatinine 0.8
Glucose 116 H
Calcium 9.9
Total Bilirubin 0.7
AST 486 H
ALT 633 H*
Alkaline Phosphatase 445 H
Vital Signs:
Vital Signs
Temp Pulse Resp BP Pulse Ox
98.2 F 57 17 140/57 98
05/22/25 07:59 05/22/25 07:59 05/22/25 07:59 05/22/25 07:59 05/22/25 07:59
I&O
05/21/25 05/22/25 05/23/25
06:59 06:59 06:59
Intake Total 2119
Balance 2119
Physical Exam
-
General: No Apparent Distress
HEENT: Normocephalic and Atraumatic
Respiratory: Negative Wheezes
Cardiac: Regular Rhythm and S1/S2
GI: Soft
Genito-urinary: No Costovertebral Tender
Neuro: AO x 3
Hematologic / Lymphatic: No Lymphadenopathy
Psych: Calm
Data Reviewed
-
Total Time Spent with Patient (in minutes): 41
Labs: Labs Reviewed by me
[2025-05-22 15:39] VITALS: BP 117/48
[2025-05-22 16:23] LABS: Glucose - Point of Care 141 mg/dl (70-99)
[2025-05-22 21:13] LABS: Glucose - Point of Care 132 mg/dl (70-99)
[2025-05-22 23:09] VITALS: BP 129/54
[2025-05-23 07:13] VITALS: BP 96/59
[2025-05-23 07:22] LABS: Glucose - Point of Care 115 mg/dl (70-99)
[2025-05-23 08:30] LABS: Hematocrit 32.5 % (37.0-47.0); Hemoglobin 11.0 g/dL (12.0-16.0); Mean Corp Hgb Conc. 33.8 g/dL (33.0-37.0); Mean Corpuscular Volume 87.1 fL (81.0-99.0); Platelet Count 233 10^3/uL (130-400); Red Cell Dist. Width 13.1 % (11.5-14.5)
[2025-05-23 08:42] LABS: ALT (SGPT) 479 U/L (0-35); AST (SGOT) 280 U/L (14-36); Albumin 4.0 g/dl (3.5-5.0); Blood Urea Nitrogen 20 mg/dl (7-17); Calcium 10.0 mg/dl (8.4-10.2); Carbon Dioxide 29 mmol/L (22-30); Chloride 108 mmol/L (98-107); Estimated Creatinine Clearance 39 ml/min; Glucose 114 mg/dl (70-99); Potassium 4.2 mmol/L (3.5-5.1); Sodium 140 mmol/L (135-145); Total Protein 6.5 g/dl (6.3-8.2); eGFR > 60.00
--- NOTE | 2025-05-23 08:51 | W.PN.GI.CBS2 ---
Today's Communication / Plan
-
LFTs improving. If continue to downtrend on tomorrows labs, okay for d/c and outpatient f/u
Assessment / Plan
-
84 y.o. female with recent CVA admitted following accidental overdose on senna and statin. Given NAC in ED, completed 05/20. No signs of MAIDA.
Tbili 1.0 --> 0.8 --> 0.7--> 0.7
AST 577 --> 281---> 489--> 486--> 280
ALT 606 --> 411 --> 591 --> 633--> 479
Alk phos 306 --> 251 --> 388 --> 445
INR 1.02
Plan: acute hepatocellular injury 2/2 DILI\\
-s/p treatment with NAC with additional bag completed 05/22
-Transaminases improving this morning, continue to trend, if continue to see improvement on tomorrows labs, would be okay with d/c home w/ outpatient f/u
-signs of fulminant liver failure (none currently present)
-abdominal US with patent vasculature, no evidence of GB/biliary pathology to account for elevated LFTs
-ENRIQUE and diarrhea improving-- suspect related to senna
-acute hepatocellular injury 2/2 DILI, persistent elevation in transaminases
-hold all hepatotoxic meds
Subjective
Subjective
Date of Service: May 23, 2025
No overnight events. Patient feels well, no complaints. LFTs improving today.
Objective
Data Reviewed
Laboratory Data:
Laboratory Results
05/23/25 07:52
05/23/25 07:52
Laboratory Results
PT 13.8 Sec (11.4-14.6) 05/22/25 08:37
INR 1.03 05/22/25 08:37
Total Bilirubin 0.5 mg/dl (0.2-1.3) 05/23/25 07:52
AST 280 U/L (14-36) H 05/23/25 07:52
ALT 479 U/L (0-35) H 05/23/25 07:52
Alkaline Phosphatase 445 U/L (38-126) H 05/22/25 06:42
Lipase 220 U/L (23-300) 05/19/25 09:42
Vital Signs and I&O:
Vital Signs
Temp Pulse Resp BP Pulse Ox
97.7 F 54 18 96/59 98
05/23/25 07:13 05/23/25 07:13 05/23/25 07:13 05/23/25 07:13 05/23/25 07:13
I&O
05/22/25 05/23/25 05/24/25
06:59 06:59 06:59
Intake Total 1900 / 1900 360 / 360
Balance 1900 / 1900 360 / 360
Physical Exam
Physical Exam
General: Well Developed, Well Nourished and No Apparent Distress
GI: Soft, Non Tender, Non Distended and Normal Bowel Sounds
Skin: No jaundice
NEUR: No asterixes
[2025-05-23 08:52] LABS: Alkaline Phosphatase 445 U/L (38-126)
[2025-05-23] MEDS: NOVOLOG FLEXPEN-LOW RESISTANCE SC ×3 (08:56→16:38)
[2025-05-23] MEDS: PEPCID 20 MG PO (08:58)
[2025-05-23] MEDS: ASPIRIN 325 MG PO (08:58)
[2025-05-23] MEDS: GLUCOPHAGE XR EXTENDED RELEASE 500 MG PO (08:58)
[2025-05-23] MEDS: HEPARIN 5000 UNITS SC ×2 (08:59→19:27)
--- NOTE | 2025-05-23 10:45 | W.PN.HOSP.TC ---
Today's Communication/Plan
-
if LFTs improved on tomorrows labs, can dc home and PCP f/u
Assessment / Plan
Assessment / Plan
Assessment:
Acute transaminitis
- US without acute abd pathology
- likely from overdose on Statin; on hold
- avoid all hepatotoxic meds
- s/p NAC protocol with Tylenol/Salicylates unremarkable now
- additional NAC given 05/21 for rising LFTs
- follow LFTs - improving today
- monitor for signs of LONG-TERM
- appreciate GI input
Acute diarrhea
- from Senna OD; on hold
ENRIQUE, likely from diarrhea and acute overdose
- improved with IVF
- monitor labs
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
- continue daily (high dose) aspirin
Diabetes Mellitus, Type II
- Hold metformin
- Monitor sugars and continue coverage insulin
Hyperlipidemia
- statin on hold for transaminitis
Depression
- Prozac on hold
GERD
- Pepcid
DVT proph: SC Heparin
Code Status: Full Code
Anticipated Discharge: Within 24 hours
Subjective/Interval History
-
Date of Service: May 23, 2025
well rested, no complaints. LFTs improving
Objective Data
-
Labs:
Laboratory Results
05/23/25
07:52
WBC 4.7 L
Hgb 11.0 L
Hct 32.5 L
Plt Count 233
Sodium 140
Potassium 4.2
Chloride 108 H
Carbon Dioxide 29
BUN 20 H
Creatinine 0.9
Glucose 114 H
Calcium 10.0
Total Bilirubin 0.5
AST 280 H
ALT 479 H
Alkaline Phosphatase 445 H
Vital Signs:
Vital Signs
Temp Pulse Resp BP Pulse Ox
97.7 F 54 18 96/59 98
05/23/25 07:13 05/23/25 07:13 05/23/25 07:13 05/23/25 07:13 05/23/25 07:13
I&O
05/22/25 05/23/25 05/24/25
06:59 06:59 06:59
Intake Total 1900 / 1900 360 / 360
Balance 1900 / 1900 360 / 360
Physical Exam
-
General: No Apparent Distress
HEENT: Normocephalic and Atraumatic
Respiratory: Negative Wheezes
Cardiac: Regular Rhythm and S1/S2
GI: Soft and Nontender
Neuro: AO x 3
Psych: Calm
Data Reviewed
-
Total Time Spent with Patient (in minutes): 41
Labs: Labs Reviewed by me
[2025-05-23 11:29] LABS: Glucose - Point of Care 90 mg/dl (70-99)
[2025-05-23 15:28] VITALS: BP 130/91
[2025-05-23 16:33] LABS: Glucose - Point of Care 96 mg/dl (70-99)
[2025-05-23 17:58] VITALS: BP 137/65; BP 165/62; PULSE 68; O2SAT 98
[2025-05-23 21:30] LABS: Glucose - Point of Care 100 mg/dl (70-99)
[2025-05-23 23:03] VITALS: BP 99/66
[2025-05-24 07:00] VITALS: BP 140/56
[2025-05-24 07:15] LABS: Glucose - Point of Care 100 mg/dl (70-99)
[2025-05-24] MEDS: NOVOLOG FLEXPEN-LOW RESISTANCE SC ×3 (07:28→17:21)
[2025-05-24 07:35] LABS: ALT (SGPT) 399 U/L (0-35); AST (SGOT) 230 U/L (14-36); Albumin 4.1 g/dl (3.5-5.0); Alkaline Phosphatase 403 U/L (38-126); Blood Urea Nitrogen 24 mg/dl (7-17); Calcium 10.3 mg/dl (8.4-10.2); Carbon Dioxide 28 mmol/L (22-30); Chloride 109 mmol/L (98-107); Estimated Creatinine Clearance 35 ml/min; Glucose 114 mg/dl (70-99); Hematocrit 33.3 % (37.0-47.0); Hemoglobin 10.9 g/dL (12.0-16.0); Mean Corp Hgb Conc. 32.7 g/dL (33.0-37.0); Mean Corpuscular Volume 87.6 fL (81.0-99.0); Platelet Count 251 10^3/uL (130-400); Potassium 4.0 mmol/L (3.5-5.1); Red Cell Dist. Width 13.2 % (11.5-14.5); Sodium 142 mmol/L (135-145); Total Protein 6.6 g/dl (6.3-8.2); eGFR 55.90
[2025-05-24] MEDS: PEPCID 20 MG PO (07:46)
[2025-05-24] MEDS: ASPIRIN 325 MG PO (07:46)
[2025-05-24] MEDS: HEPARIN 5000 UNITS SC (07:46)
[2025-05-24] MEDS: GLUCOPHAGE XR EXTENDED RELEASE 500 MG PO (07:47)
--- NOTE | 2025-05-24 08:45 | W.PN.GI.CBS2 ---
Today's Communication / Plan
-
LFTs improving. Okay for d/c home today with repeat labs with PCP this week
Assessment / Plan
-
84 y.o. female with recent CVA admitted following accidental overdose on senna and statin. Given NAC in ED, completed 05/20. No signs of MAIDA.
Tbili 1.0 --> 0.8 --> 0.7--> 0.7-->0.5
AST 577 --> 281---> 489--> 486--> 280--> 230
ALT 606 --> 411 --> 591 --> 633--> 479--> 399
Alk phos 306 --> 251 --> 388 --> 445--> 403
INR 1.02
Plan: acute hepatocellular injury 2/2 DILI
-s/p treatment with NAC with additional bag completed 05/22
-Transaminases continue to downtrend
-no signs of fulminant liver failure
-abdominal US with patent vasculature, no evidence of GB/biliary pathology to account for elevated LFTs
-ENRIQUE and diarrhea improving-- suspect related to senna
-acute hepatocellular injury 2/2 DILI, persistent elevation in transaminases
-hold all hepatotoxic meds
Okay for d/c home today with repeat labs with PCP this week
Subjective
Subjective
Date of Service: May 24, 2025
Patient somewhat confused this morning, seems to be . States her son is coming from the [facility] to pick her up. She offers no complaints this morning. LFTs continue to show improvement.
Objective
Data Reviewed
Laboratory Data:
Laboratory Results
05/24/25 06:58
05/24/25 06:58
Laboratory Results
PT 13.8 Sec (11.4-14.6) 05/22/25 08:37
INR 1.03 05/22/25 08:37
Total Bilirubin 0.5 mg/dl (0.2-1.3) 05/24/25 06:58
AST 230 U/L (14-36) H 05/24/25 06:58
ALT 399 U/L (0-35) H 05/24/25 06:58
Alkaline Phosphatase 403 U/L (38-126) H 05/24/25 06:58
Lipase 220 U/L (23-300) 05/19/25 09:42
Vital Signs and I&O:
Vital Signs
Temp Pulse Resp BP Pulse Ox
97.8 F 69 18 99/66 96
05/23/25 23:03 05/23/25 23:03 05/23/25 23:03 05/23/25 23:03 05/23/25 23:03
I&O
05/23/25 05/24/25 05/25/25
06:59 06:59 06:59
Intake Total 360 / 360 480 / 480
Balance 360 / 360 480 / 480
Physical Exam
Physical Exam
General: Non-toxic appearing but confused
GI: Soft, Non Tender, Non Distended and Normal Bowel Sounds
Skin: No jaundice
NEUR: No asterixes
--- NOTE | 2025-05-24 11:41 | W.PN.HOSP.TC ---
Today's Communication/Plan
-
dc to home
PCP f/u and labs
Assessment / Plan
Assessment / Plan
Assessment:
Acute transaminitis
- US without acute abd pathology
- likely from overdose on Statin; on hold
- avoid all hepatotoxic meds
- s/p extended NAC protocol with Tylenol/Salicylates unremarkable now
- repeat LFTs later this week and PCP f/u
- no signs of SENIOR LIVING
Acute diarrhea
- from Senna OD; on hold
ENRIQUE, likely from diarrhea and acute overdose
- improved with IVF
- monitor labs
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
- continue daily (high dose) aspirin
Diabetes Mellitus, Type II
- resume metformin
- Monitor sugars and continue coverage insulin
Hyperlipidemia
- statin on hold for transaminitis
Depression
- Prozac on hold
GERD
- Pepcid
DVT proph: SC Heparin
Code Status: Full Code
More than 30 minutes spent in discharge including
Final examination of the patient
Summarizing hospital stay
Instructions for continuing care to all relevant caregivers
Preparation of discharge records, prescriptions, and referral forms
Total time spent (in minutes): 41
Anticipated Discharge: Today
Subjective/Interval History
-
Date of Service: May 24, 2025
resting comfortably, no complaints
LFTs improving
Objective Data
-
Labs:
Laboratory Results
05/24/25
06:58
WBC 4.9
Hgb 10.9 L
Hct 33.3 L
Plt Count 251
Sodium 142
Potassium 4.0
Chloride 109 H
Carbon Dioxide 28
BUN 24 H
Creatinine 1.0
Glucose 114 H
Calcium 10.3 H
Total Bilirubin 0.5
AST 230 H
ALT 399 H
Alkaline Phosphatase 403 H
Vital Signs:
Vital Signs
Temp Pulse Resp BP Pulse Ox
98.5 F 51 18 140/56 97
05/24/25 07:00 05/24/25 07:00 05/24/25 07:00 05/24/25 07:00 05/24/25 08:00
I&O
05/23/25 05/24/25 05/25/25
06:59 06:59 06:59
Intake Total 360 / 360 480 / 480
Balance 360 / 360 480 / 480
Physical Exam
-
General: No Apparent Distress
HEENT: Normocephalic and Atraumatic
Respiratory: Negative Wheezes
Cardiac: Regular Rhythm and S1/S2
GI: Soft
Genito-urinary: No Costovertebral Tender
Neuro: AO x 3
Psych: Calm
--- NOTE | 2025-05-24 11:47 | W.DS.TRANS ---
DC Summary - [employer]
-
Discharge Instructions:
Discharge Diagnosis/Procedures acute drug induced liver injury related to
overdose on statin
Diet Low Cholesterol
Activity As tolerated
Blood Work repeat blood work CMP - slip given
Other Services VN
Instructions:
Stand-Alone Forms:
Changes to Home Medications: No
Discharge Medications:
DC Medications w/original date entered in [employer]
aspirin 325 mg tablet 325 mg PO DAILY Heart Disease/Condition 05/19/25
atorvastatin 80 mg tablet (Lipitor) 80 mg PO DAILY High Cholesterol 05/19/25
Held on 05/24/25. Instructions: until cleared by PCP to resume
cetirizine 10 mg tablet (Zyrtec) 10 mg PO DAILY Allergies 05/19/25
famotidine 20 mg tablet (Pepcid) 20 mg PO DAILY Gastrointestinal Issue 05/19/25
fluoxetine 20 mg capsule (Prozac) 20 mg PO DAILY Mental Health/Anxiety 05/19/25
metformin 500 mg tablet,extended release 24 hr 500 mg PO DAILY Diabetes 05/19/25
sennosides 8.6 mg tablet (senna) 17.2 mg PO DAILY Constipation 05/19/25
Home Medication Changes
Pending Results: No
Total time spent discharging patient (in min): 41
[2025-05-24 11:56] LABS: Glucose - Point of Care 142 mg/dl (70-99)
[2025-05-24 15:00] VITALS: BP 134/47
[2025-05-24] MEDS: MOTRIN 200 MG PO (15:56)
--- NOTE | 2025-05-24 16:52 | CM ---
Patient with Hx CVA with Dx Acute transaminitis likely from overdose on Statin, diarrhea, ENRIQUE. Room air. PT Eval; no needs. OT Eval; recommend outpatient therapy. Per nurse; confused.
Spoke with patient's daughter in law Maribel; she agrees with d/c today. IMM completed and copy sent to her email at [email or web address]. DIL agrees to [facility] for SN/PT/OT. The DIL and son are in the [place] for the holiday
weekend and driving back today to take patient home- they will be able to be here between 6-7pm.
[facility] (fax [phone]) notified of d/c via [facility].
Plan home today with resumption [facility], with family.
== END 2025-05-24 17:32 | disposition home health service (06) | DRG 918 ==
LOC: 4 WEST ACU 13:51
PROVIDERS: Physician Assistant; Physician Assistant Medical; ADMITTING PHYSICIAN Hospitalist; ATTENDING PHYSICIAN Internal Medicine; EMERGENCY PHYSICIAN Emergency Medicine; FAMILY PHYSICIAN Internal Medicine Nephrology; OTHER PHYSICIAN Internal Medicine
DX: T46.6X1A Poisoning by antihyperlipidemic and antiarteriosclerotic drugs, accidental (unintentional), initial encounter (principal); N17.9 Acute kidney failure, unspecified; K71.9 Toxic liver disease, unspecified; E11.9 Type 2 diabetes mellitus without complications; I69.319 Unspecified symptoms and signs involving cognitive functions following cerebral infarction; F32.A Depression, unspecified; K21.9 Gastro-esophageal reflux disease without esophagitis; E78.00 Pure hypercholesterolemia, unspecified; F41.9 Anxiety disorder, unspecified; Z79.82 Long term (current) use of aspirin; Z79.84 Long term (current) use of oral hypoglycemic drugs; Z87.891 Personal history of nicotine dependence; Z96.653 Presence of artificial knee joint, bilateral
CPT/HCPCS: 76700; 80053; 80143; 80179; 82077; 82550; 82805; 82962; 83036; 83605; 83690; 85025; 85027; 85610; 92610; 93005; 96361; 96374; 96376; 97162; 97167; 97530; 99285; J0132; J7030

== ENCOUNTER 2025-06-08 16:50 | Observation (INO) | payer OTHER, SELFPAY ==
[2025-06-08] VITALS (12 sets, daily range): BP systolic 92–183; BP diastolic 47–75; BMI 21.8; BMI 18.6
--- NOTE | 2025-06-08 11:40 | ED.GENMED ---
History of Present Illness
General
Chief Complaint: Abnormal Lab Value
Source: patient
Exam Limitations: none
Time Seen by Provider: 06/08/25 11:11
Nursing documentation reviewed up to this point in time: agreed with
History of Present Illness
History of Present Illness:
Patient is an 84-year-old female who presents to the ER for evaluation. Patient was recently admitted May 19 May 24 from accidental overdose of her statins. She had an acute drug liver injury secondary to this ingestion. She lives at home with
her son and [id number]. Son reports patient has a history of dementia ever since her stroke in February 2025. He reports patient however seems more more confused which is what prompted him to bring patient to the ER.
He reports no fevers. No recent trauma or fall
Past History
Past History
ED Past Medical History: CVA, GERD, Hypercholesterolemia and Psychiatric (depression)
ED Past Surgical History: Orthopedic
Social History
Tobacco: Former smoker
Alcohol: None
Drug: None
Personal: Single
Living: with family
Phy Exam
General Physical Exam
General Presentation: no apparent distress
General age: appears stated age
General Skin: warm
General Habitus: normal
General Mental: alert
General Hydration: appears well hydrated
Cardiovascular Exam
Cardiovascular Exam: regular rate/rhythm, no murmur and normal peripheral pulses
Pulmonary Exam
Pulmonary Exam: lungs clear and no respiratory distress
Neurological Exam
Neurological Exam: alert and oriented x3
Musculoskeletal Exam
Musculoskeletal Exam: full ROM
Skin Exam
Skin Exam: normal color and warm/dry
Psychiatric Exam
Psychiatric Exam: normal mood/affect
Course
Orders/Labs/Results
Orders:
Orders
06/08/25 11:32
Complete Blood Count/With Diff Urgent
Comprehensive Metabolic Panel Urgent
06/08/25 12:00
CT Head W/o Iv Contrast Urgent
Comment:
Reason For Exam: confusion
06/08/25 12:28
0.9% Sodium Chloride 500 ml [Nss] 500 ml IV BOLUS
06/08/25 13:25
UA Reflex to Culture [Urinalysis Reflex To Culture] Urgent
Date Specimen was Collected: 06/08/25
Time Specimen was Collected: 13:23
06/08/25 16:22
Admit/Transfer Patient As Directed
Co-Sign Provider:
Level of Care: Observation services
Assign to:: Medical/Surgical
Physician / Group: Hammad Morales
Diagnosis: acute kidney injury, change in mental status
Code Status As Directed
Resuscitation Status: Do not resuscitate
Reached after discussion with pt or family/Healthcare POA: Yes
Decision communicated with: patient son
DNR Bracelet Application ONCE
PRN Pain Medication Management As Directed
May give lesser potent ordered pain med per pt: Yes
preference::
Protocol:: Medication orders for pain may be administered in a
manner that supports deferring to patient preference
when the pt is:
- Requesting an ordered lesser potent pain medication.
Least to most potent pain medications are defined
as: acetaminophen < NSAID < tramadol < opioids
(morphine, oxycodone, hydromorphone).
- Requesting a lesser dose of the same medication IF
ORDERED.
- Requesting a less intrusive route of administration
if both routes are prescribed by the provider (PO <
IV).
Abnormal Lab Results
06/08/25
11:32
RBC 3.39 L 10^6/uL
(4.20-5.40)
Hgb 9.9 L g/dL
(12.0-16.0)
Hct 30.2 L %
(37.0-47.0)
MCHC 32.8 L g/dL
(33.0-37.0)
Monocytes % 9.6 H %
(1.7-9.3)
Chloride 109 H mmol/L
(98-107)
BUN 36 H mg/dl
(7-17)
Creatinine 1.4 H mg/dL
(0.6-1.0)
06/08/25 11:32
06/08/25 11:32
Vital Signs
Initial and Last Documented VS:
Initial Vital Signs
Temp Pulse Resp BP Pulse Ox
98 F 57 18 92/47 99
06/08/25 10:50 06/08/25 10:50 06/08/25 10:50 06/08/25 10:50 06/08/25 10:50
Last Documented Vital Signs
Temp Pulse Resp BP Pulse Ox
98 F 51 12 134/75 95
06/08/25 10:50 06/08/25 17:45 06/08/25 17:45 06/08/25 17:00 06/08/25 17:45
MDM/Problems Addressed
Differential Diagnosis Includes:
Not limited to dehydration, UTI/infection, worsening memory issues/dementia
MDM/Problems Addressed:
As document patient is an 84-year-old female with history of stroke ,recent drug-induced liver injury from an unintentional overdose of statins presents for worsening confusion. Son has been closely monitoring patient and monitoring her
medications. He puts them out on a cot for her every day. He reports simply she has been more more confused they are trying to arrange more care for patient. They are trying to get home care in place however he is not certain that he feels safe
taking care of her at home presently
Patient presents awake alert she is pleasantly confused she does not know why she is here. Her liver functions are normal, her BUN and creatinine are mildly elevated she was given fluids. Will check urine as well as CAT scan head however pt may
need admission for confusion and will need case management .
CT negative ;urine negative for infection. Case management evaluated patient and discussed with son. Son does not feel that he can care for patient home will need placement. Patient will require admission
*Radiology
Radiology exam reviewed: radiology read reviewed
*Pulse Oximetry
SaO2: 98
Oxygen Mode of Delivery: Room air
Patient hypoxic: no
*Critical Care Note
Total Time (30-74mins, 75-104mins- exclusive of procedures): Not Applicable
ED Attending Note
-
Portions of this chart may have been created with voice recognition software.� Occasional wrong word or��sound alike� substitutions may have occurred due to the inherent limitations of voice recognition software.
Discharge Plan
Departure
Patient Disposition: Admit
Date of Disposition: 06/08/25
Time of Disposition: 15:40
Admit to: Med/Surg
Admit to doctor: hospitalist
Presentation/result/management discussed w/ accepting MD/DO: Hospitalist
Patient with high blood pressure during this ER visit?: Yes
Condition: Fair
Covid-19: Not Applicable
Discharge Problem:
Confusion
Interventions
Interventions:
*Risk Screen - Suicide Last Done: 06/08/25 11:11
*General Assessment Last Done: 06/08/25 10:46
*Neglect/Abuse Screening Last Done: 06/08/25 11:11
*ED- Fall Risk Assessment Last Done: 06/08/25 11:11
*ED COVID-19 Vaccine History Last Done: 06/08/25 11:11
[2025-06-08 11:48] LABS: Hematocrit 30.2 % (37.0-47.0); Hemoglobin 9.9 g/dL (12.0-16.0); Mean Corp Hgb Conc. 32.8 g/dL (33.0-37.0); Mean Corpuscular Volume 89.1 fL (81.0-99.0); Nucleated Red Blood Cells % 0 %; Platelet Count 252 10^3/uL (130-400); Red Cell Dist. Width 13.2 % (11.5-14.5)
[2025-06-08 12:02] LABS: ALT (SGPT) 33 U/L (0-35); AST (SGOT) 27 U/L (14-36); Albumin 4.2 g/dl (3.5-5.0); Alkaline Phosphatase 125 U/L (38-126); Blood Urea Nitrogen 36 mg/dl (7-17); Calcium 9.6 mg/dl (8.4-10.2); Carbon Dioxide 24 mmol/L (22-30); Chloride 109 mmol/L (98-107); Estimated Creatinine Clearance 29 ml/min; Glucose 82 mg/dl (70-99); Potassium 4.2 mmol/L (3.5-5.1); Sodium 139 mmol/L (135-145); Total Protein 6.5 g/dl (6.3-8.2); eGFR 37.33
[2025-06-08] MEDS: NSS 500 IV (12:58)
[2025-06-08 13:41] LABS: Urine Character Clear (Clear)
--- NOTE | 2025-06-08 15:42 | HPS.HSE ---
Family Physician
-
Family Physician: Meir Mendez
Chief Complaint
-
change in mental status
History of Present Illness
Patient is a 84-year-old female with past medical history significant for frontal CVA with residual cognitive impairment, diabetes mellitus, hyperlipidemia, depression and GERD who presented to [facility] ED for evaluation of change in mental status.
Patient is poor historian, son at bedside who assisted in HPI. Patient suffered a frontal stroke in February 2025 and since then has had significant cognitive decline. Patient with hospitalization for unintentional drug overdose 3 weeks previously.
Since then son states she continues to be forgetful, confusion at times, and visual hallucinations. He does express safety concerns with some ADL like cutting her own food, does not feel she knows her own strength and could easily cut herself. He
does say she goes for walks in neighborhood by herself and has not gotten lost. Since stroke she has been living with her son and his family verse her own apartment. Patient has had moments when she did not realize who her son was, has also seen
things in garden that are not there. Denies fever, chills, cough, shortness of breath, chest pain, nausea, vomiting or changes in bowels or urine.
Medical History
Past Medical History
Past Medical History: Reports Other
Additional Past Medical History:
Frontal CVA February 2025
Cognitive Impairment
Diabetes Mellitus, Type II
Hyperlipidemia
Depression
GERD
Past Surgical History: Reports Other
Additional Past Surgical History:
Bilateral Knee Replacements
Social History
Tobacco: Former Smoker (Quit Early 2024)
Alcohol: None
Drug: None
Living: With Family
Family History
Family History: Not pertinent
Allergies / Home Medications
Allergies reflects when Allergies were last updated in [employer].
Home Medications with original date entered in [employer]
Allergy/Medication List:
Medications on admission are unable to be verified or confirmed at this time.
Review of Systems
-
History Source: Family
Constitutional: Denies Fever, Sleep Disturbance or Chills
Respiratory: Denies Cough or Trouble Breathing
Cardiac: Denies Chest Pain, Diaphoresis, Palpitations or Syncope
Abdomen/GI: Denies Abdominal Pain, Nausea, Vomiting or Diarrhea
: Denies Incontinence
Musculoskeletal: Denies Edema
Neurological: Reports Other (confusion, hallucinations and forgetfulness ); Denies Weakness
Psych: Reports Calm
Physical Exam
Vital Signs
Vital Signs
Temp Pulse Resp BP Pulse Ox
98 F 49 12 151/56 95
06/08/25 10:50 06/08/25 15:15 06/08/25 15:15 06/08/25 15:00 06/08/25 15:15
Physical Exam
General: Well Developed, Well Nourished and No Apparent Distress
HEENT: NormoCephalic, Moist mucous membranes and Atraumatic
Respiratory: Clear
Cardiac: S1/S2 and Regular Rhythm
GI: Soft, Non Tender, Non Distended and Normal Bowel Sounds
Rectal: Deferred by Provider
Musculoskeletal: No Clubbing, No Cyanosis and No Edema
Skin: Warm and IV/Catheter Site
Neuro: Awake, Alert and Nonfocal/grossly intact
Psych: Calm
Laboratory Results
-
06/08/25 11:32
06/08/25 11:32
Laboratory Results
Total Bilirubin 0.6 mg/dl (0.2-1.3) 06/08/25 11:32
AST 27 U/L (14-36) 06/08/25 11:32
ALT 33 U/L (0-35) 06/08/25 11:32
Alkaline Phosphatase 125 U/L (38-126) 06/08/25 11:32
Data Reviewed
-
CT Scan: Report Reviewed by me (Head: Large wedge-shaped region of near CSF density involving the right parietal, occipital, and temporal lobes, appearance compatible with an old right MCA infarct. Small focus of CSF density in the right superior
medial cerebellar hemisphere, compatible with old infarct. No evidence for acute in)
Lab Data: Labs Reviewed by me (hgb 9.9, hct 30.2, BUN 36, creat 1.4, Est CrCl 29, eGFR 37.33, )
Impression/Plan
-
IMPRESSION/PLAN:
#change in mental status 2/2 cognitive decline vs. UTI
Head CT: Large wedge-shaped region of near CSF density involving the right parietal, occipital, and temporal lobes, appearance compatible with an old right MCA infarct.
Small focus of CSF density in the right superior medial cerebellar hemisphere, compatible with old infarct.
No evidence for acute intracranial abnormality.
- Admit to med/surg
- Consult case management
- Consult PT
#acute kidney injury
BUN 36, creat 1.4, Est CrCl 29, eGFR 37.33
- IVF given in ED
- monitor BMP
#diabetes mellitus
- continue metformin
#Hx frontal CVA 02/2025
#hyperlipidemia
- continue aspirin
- restart atorvastatin (LFTs have normalized)
#depression
- continue fluoxetine
#GERD
- continue famotidine
*med rec not completed, note indicates potential orders*
Code status: DNR
DVT prophylaxis: heparin sq
--- NOTE | 2025-06-08 15:58 | CM ---
ED CM consult for dc planning
CM met with son/Enoch and pt bedside
Pt with confusion and did not participate in IA
Pt resides with her son and DIL/Maribel in a capecod with 1 st floor set up
Pt is indep with ambulations, no DMEs
Pt requires coaxing and cueing to complete personal care tasks
Has eloped in the past, calm and cooperative
PCP- Hanny Schulte
Son has been pursuing LTC options
Has applied fo waiver at [facility] and has financially qualified
He noted no private pay funds intact and increasing difficulty with caring for mother at home
Cannot afford assisted living/memory care
He travels for work and spouse works out fo the home
They have exhausted their leave
He is requesting LTC SNF placement, will need MA
PAC provided
Broad net of referrals sent and pending
DIL to remains primary contact and she manages all financials for pt as son travels frequently
Discharge Disposition- SNF for LTC/MA
--- NOTE | 2025-06-08 16:16 | W.PN.UPDATE ---
Update Note
Progress Note Update
I could not get any information from the patient is confused
Information gathered by chart review and speaking with the ER staff.
This note serves as an addendum to the H&P by produce specialist ABRAHAM
Arlette Beltran
HPI
84F HX CVA, memory disorder seen at ER:
- brought in by son for increasing confusion
- recently adm early May for unintentional statin overdose
- seen by SANDY haddad son does not feel that he can care for her at home will need placement. C
Vital Signs
Temp Pulse Resp BP Pulse Ox
98 F 54 14 168/58 96
06/08/25 10:50 06/08/25 16:00 06/08/25 16:00 06/08/25 16:00 06/08/25 16:00
PE
General: NAD - pleasant
HEENT: Normocephalic and Atraumatic
Respiratory: Negative Wheezes
Cardiac: Regular Rhythm and S1/S2
GI: Soft
: No Costovertebral Tender
Neuro: AO x 3
Psych: Calm
Relevant Data
Labs
05/24/25 06/08/25
06:58 11:32
WBC 5.7
Hgb 10.9 L 9.9 L
Plt Count 252
Creatinine 1.0 1.4 H
NEG UA
HCT:
- Large wedge-shaped region of near CSF density involving the right parietal, occipital, and temporal lobes, appearance compatible with an old right MCA infarct.
- Small focus of CSF density in the right superior medial cerebellar hemisphere, compatible with old infarct.
- No evidence for acute intracranial abnormality.
Last hospitalist admission: 05/19/2025 - 05/24/2025
DDX: Acute drug induced liver injury related to overdose on statin.
ASSESSMENT & PLAN
Pending Rx reconciliation
Worsening confusion likely Metabolic encephalatrophy due to ENRIQUE and dehydration
Underlying dementia NOS portably vascular dementia +/_ Alzheimer
HX large Rt MCA region ischemic infarct CVA
- Hydrations
- f/u clinical response
- fall precaution
- PT/OT
ENRIQUE
Dehydration
- IV ND
- Hold Metformin
- Trend Cr
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
- continue daily (high dose) aspirin
- PT/OT
T2DM
- Hold metformin
- add ISS low
Hyperlipidemia
- statin on hold for transaminitis
Depression
- Prozac on hold
GERD
- Pepcid
Adult FT at home
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
- CRM consulted
- need placement
DVT Px: SQH
DNR
OBS MS
[2025-06-09] MEDS: HEPARIN 5000 UNITS SC ×3 (00:01→17:27)
--- NOTE | 2025-06-09 02:28 | DOWNTIME ---
There was a [employer] Supervisor Downtime on 06/09/2025 from 0100 to 06/09/2025 at 0220. Downtime documentation of patient's care, including medication administrations, has been reconciled in the electronic record per guidelines. Refer to the
patient's paper chart under the miscellaneous tab to see printed paper medication records and downtime forms.
[2025-06-09 06:07] LABS: Blood Urea Nitrogen 28 mg/dl (7-17); Calcium 9.2 mg/dl (8.4-10.2); Carbon Dioxide 26 mmol/L (22-30); Chloride 110 mmol/L (98-107); Estimated Creatinine Clearance 32 ml/min; Glucose 80 mg/dl (70-99); Potassium 4.3 mmol/L (3.5-5.1); Sodium 141 mmol/L (135-145); eGFR 49.86
[2025-06-09 07:15] VITALS: BP 103/51
--- NOTE | 2025-06-09 08:27 | CON.NEURO ---
Addendum entered and electronically signed by Dav Villafana MD 06/09/25 11:14:
Studies reviewed.
I have personally examined the patient. I reviewed and agree with the KISS MACHINE OPERATOR's Note.
My addenda:
Awake, alert, interactive. No acute distress.
Speech intact.
Follows 2-step requests w/o difficulty. No tremor.
Extra-ocular movements grossly intact.
Facial movements full and symmetric. Hearing intact to normal conversational volume.
Normal UE movements bilaterally.
Neck: full ROM.
Chest: no dyspnea
Heart: no JVD
Ext: (-) Clubbing, (-) Cyanosis, (-) Edema
IMPRESSIONS/RECOMMENDATIONS:
Abrupt worsening of mental status in a patient with recently diagnosed dementia and large right MCA ischemic stroke
Unclear if the patient's mental status change is variable due to presumed vascular dementia
Check blood work for potential metabolic abnormalities producing worsening of symptoms of confusion
Not clear the patient would benefit from EEG at this time
Would recheck MRI of brain if patient has progressive worsening of cognition/acute changes
Provide thiamine
Continue atorvastatin, advance to 40 mg as the patient's transaminitis has resolved and LDL still greater than 70
Continue aspirin
Would avoid hydralazine in a patient with cognitive dysfunction due to potential worsening
Will continue to follow peripherally.
Original Note:
Neuro Assessment/Plan
Assessment
Patient is an 84-year-old female with past medical history of CVA, GERD, HLD and dementia who presented to the [facility] on 06/08/2025 for evaluation of change in mental status.
Head CT: Large wedge-shaped region of near CSF density involving the right parietal, occipital, and temporal lobes, appearance compatible with an old right MCA infarct. Small focus of CSF density in the right superior medial cerebellar hemisphere,
compatible with old infarct. No evidence for acute intracranial abnormality.
Labs: BUN 28, Cr 1.1, Cholesterol 174, LDL 104
Plan
Impressions: abrupt onset of change in mental status possibly due to metabolic encephalopathy with underlying dementia
-check blood work for metabolic disturbances
-current LDL 104, resume atorvastatin as LFTs have normalized with goal LDL <70
-consider brain MRI although unlikely to exchange teller
-normotension and normoglycemia
-neuropsychological testing outpatient
-PT/ST/OT evaluations
-DVT prophylaxis
Plan of care discussed with Dr. Villafana, hospitalist and patient
Consultation
Order
Date of Consultation: 06/09/25
Requesting Provider: hospitalist
Reason for Consult: change in mental status
Subjective/Objective
Subjective Data
Date of Service: June 09, 2025
Patient is an 84-year-old female with past medical history of CVA, GERD, HLD and dementia who presented to the [facility] on 06/08/2025 for evaluation of change in mental status. All information obtained from her chart, patient has dementia and unable to
provide additional history. Patient was recently admitted May 19 May 24 from accidental overdose of her statins. She had an acute drug liver injury secondary to this ingestion. She lives at home with her son and [id number]. Son reports
patient has a history of dementia ever since her stroke in February 2025. He reports patient however seems more more confused which is what prompted him to bring patient to the ER. He reports no fevers. No recent trauma or fall. No issues with
chewing or swallowing. No issues with bowel/bladder. He does express safety concerns with some ADL like cutting her own food, does not feel she knows her own strength and could easily cut herself. He does say she goes for walks in neighborhood by
herself and has not gotten lost. Currently on her exam, she is awake and oriented to place, month and year. No dysarthria or aphasia. Left sided sensory changes and left upper extremity drift with ataxia. Her head CT showed large wedge-shaped region
of near CSF density involving the right parietal, occipital, and temporal lobes, appearance compatible with an old right MCA infarct, small focus of CSF density in the right superior medial cerebellar hemisphere, compatible with old infarct, no
evidence for acute intracranial abnormality. Labs showed BUN 36, creat 1.4, Est CrCl 29, eGFR 37.33.
Objective Data
Vital Signs
Temp Pulse Resp BP Pulse Ox
98.4 F 56 16 103/51 97
06/09/25 07:15 06/09/25 07:15 06/09/25 07:15 06/09/25 07:15 06/09/25 07:15
Lab Results
06/08/25 11:32
06/09/25 05:14
Sodium 141 mmol/L (135-145) 06/09/25 05:14
Potassium 4.3 mmol/L (3.5-5.1) 06/09/25 05:14
BUN 28 mg/dl (7-17) H 06/09/25 05:14
Glucose 80 mg/dl (70-99) 06/09/25 05:14
Calcium 9.2 mg/dl (8.4-10.2) 06/09/25 05:14
Patient Allergies
No Known Allergies Allergy (Unverified 05/15/25 16:00)
Review of Systems
-
Unable to obtain full review of systems at this time due to: Dementia
Physical Exam
-
General: No Apparent Distress and Comfortable
HEENT: Normocephalic, Atraumatic and Anicteric
Neck: Full Range of Motion
Respiratory: No Dyspnea
Cardiac: No JVD
GI: Non-distended
Skin: Unremarkable
Extremities: No Clubbing, No Cyanosis and No Edema
Psych: Confused and Apparent Dementia
Extended Neurological Exam
Mood & Affect: Mood Unremarkable
Attention Span & Concentration: Awake, Alert, Interactive and Other (oriented to place, month and year)
Memory: Vague and Incomplete Historian
Tremor: Hand Tremor Absent and Head Tremor Absent
Speech: Quality Unremarkable, Quantity Unremarkable and Rate of Production Unremarkable
Cranial Nerve VII: Facial Symmetry: Normal Facial Symmetry
Cranial Nerve VIII: Hearing: Unremarkable Hearing to Normal Conversational Volume
Muscle Strength, Overall: Full Throughout
Pronator Drift: Drift in Left Upper Extremity
Coordination: Other (ataxia on LUE)
Data Reviewed
-
CT Head: Report Reviewed and Image Reviewed
Labs: Report Reviewed
Reviewed with: Physician and Patient
Old Records: Summarized
Medications
-
Active Medications
Generic Name Dose Route Start Last Admin
Trade Name Freq PRN Reason Stop Dose Admin
Acetaminophen 1,000 mg 06/09/25 07:04
Acetaminophen 500 Mg Tablet PO 07/07/25 07:03
Q6HPRN PRN
mild to mod pain
Aspirin 81 mg 06/09/25 08:00
Aspirin 81 Mg Chewable Tablet PO 07/07/25 07:59
DAILY ANGELICA
Atorvastatin Calcium 10 mg 06/09/25 18:00
Atorvastatin (Lipitor) 10 Mg Tablet PO 07/07/25 17:59
QPM ANGELICA
Cetirizine HCl 10 mg 06/09/25 08:00
Cetirizine Hcl 10 Mg Tablet PO 07/07/25 07:59
DAILY ANGELICA
Dextrose 12.5 grams 06/09/25 07:04
Dextrose 50% (0.5 Grams/Ml) 50 Ml Syringe IV 07/07/25 07:03
[id number] PRN
hypoglycemia
Protocol
Fluoxetine HCl 20 mg 06/09/25 08:00
Fluoxetine 20 Mg Capsule PO 07/07/25 07:59
DAILY ANGELICA
Glucagon 1 mg 06/09/25 07:04
Glucagon 1 Mg Vial IM 07/07/25 07:03
PRN PRN
hypoglycemia
Protocol
Heparin Sodium 5,000 units 06/09/25 00:00 06/09/25 00:01
Heparin 5,000 Units/Ml 1 Ml Vial SC 07/07/25 00:00 5,000 units
Q8 ANGELICA Administration
Hydralazine HCl 5 mg 06/09/25 07:08
Hydralazine 10 Mg Tablet PO 07/07/25 07:07
TIDPRN PRN
sbp more than 155
Insulin Aspart 0 units 06/09/25 07:30
Insulin Aspart Low Resistance 300 Units/3 Ml Pen.Injctr SC 07/07/25 07:29
AC ANGELICA
Protocol
Melatonin 5 mg 06/09/25 07:09
Melatonin 5 Mg Tablet PO 07/07/25 07:08
HSPRN PRN
insomnia
Sennosides 17.2 mg 06/09/25 22:00
Sennosides (Senokot) 8.6 Mg Tablet PO 07/07/25 21:59
HS ANGELICA
Home Medications
�Medication �Instructions �Recorded
aspirin 325 mg tablet 325 mg PO DAILY Heart 05/19/25
Disease/Condition
atorvastatin 80 mg tablet (Lipitor) 80 mg PO DAILY High Cholesterol 05/19/25
Held on 05/24/25.
Instructions: until cleared
by PCP to resume
cetirizine 10 mg tablet (Zyrtec) 10 mg PO DAILY Allergies 05/19/25
famotidine 20 mg tablet (Pepcid) 20 mg PO DAILY Gastrointestinal 05/19/25
Issue
fluoxetine 20 mg capsule (Prozac) 20 mg PO DAILY Mental 05/19/25
Health/Anxiety
metformin 500 mg tablet,extended 500 mg PO DAILY Diabetes 05/19/25
release 24 hr
sennosides 8.6 mg tablet (senna) 17.2 mg PO DAILY Constipation 05/19/25
Past History
Past History
ED Past Medical History: CVA, GERD, Hypercholesterolemia and Psychiatric (depression)
ED Past Surgical History: Orthopedic
Family/Social History
Tobacco: Former smoker
Alcohol: None
Drug: None
Personal: Single
Living: with family
[2025-06-09] MEDS: LOW STRENGTH ASPIRIN 81 MG PO (08:48)
[2025-06-09] MEDS: PROZAC 20 MG PO (08:48)
[2025-06-09] MEDS: ZYRTEC 10 MG PO (08:48)
[2025-06-09] MEDS: NOVOLOG FLEXPEN-LOW RESISTANCE SC ×2 (08:51→17:18)
[2025-06-09 08:52] LABS: Glucose - Point of Care 127 mg/dl (70-99)
--- NOTE | 2025-06-09 09:15 | CM ---
CM following for discharge planning to LTC. CM spoke with pt's son who advised he is interested in [facility], [facility], [facility], [facility] (declined admission), and referral also sent to [facility].
Will continue to follow to coordinate transfer to LTC pending accepting facilities.
--- NOTE | 2025-06-09 09:16 | W.PN.HOSP.TC ---
Today's Communication/Plan
-
dc planning
Assessment / Plan
Assessment / Plan
Physical Exam
General: Well Developed, Well Nourished and No Apparent Distress
HEENT: NormoCephalic, Moist mucous membranes and Atraumatic
Respiratory: Clear
Cardiac: S1/S2 and Regular Rhythm
GI: Soft, Non Tender, Non Distended and Normal Bowel Sounds
Rectal: Deferred by Provider
Musculoskeletal: No Clubbing, No Cyanosis and No Edema
Skin: Warm and IV/Catheter Site
Neuro: Awake, Alert and Nonfocal/grossly intact
Psych: Calm
#change in mental status
Abrupt worsening of mental status in a patient with recently diagnosed dementia and large right MCA ischemic stroke
Per neurologist: Unclear if the patient's mental status change is variable due to presumed vascular dementia
Head CT: Large wedge-shaped region of near CSF density involving the right parietal, occipital, and temporal lobes, appearance compatible with an old right MCA infarct.
Small focus of CSF density in the right superior medial cerebellar hemisphere, compatible with old infarct.
No evidence for acute intracranial abnormality.
-Started on Thiamine. c/w statin & aspirin.
- Consult case management
- Consult PT
#acute kidney injury
BUN 36, creat 1.4, Est CrCl 29, eGFR 37.33
- IVF given in ED
- monitor BMP
#diabetes mellitus
- continue metformin
#Hx frontal CVA 02/2025
#hyperlipidemia
- continue aspirin
- restart atorvastatin (LFTs have normalized)
#depression
- continue fluoxetine
#GERD
- continue famotidine
Code status: DNR
DVT prophylaxis: heparin sq
Total time spent to see the patient, examine the patient, review lab results and data, discuss treatment plan with patient, nursing staff around 55 minutes
Anticipated Discharge: Today
Subjective/Interval History
-
Date of Service: June 09, 2025
No pain complaints. No chest pain. No abdominal pain. No shortness of breath. No hypoxia. No headache
Objective Data
-
Labs:
Laboratory Results
06/09/25
05:14
Sodium 141
Potassium 4.3
Chloride 110 H
Carbon Dioxide 26
BUN 28 H
Creatinine 1.1 H
Glucose 80
Calcium 9.2
Vital Signs:
Vital Signs
Temp Pulse Resp BP Pulse Ox
98.4 F 56 16 103/51 97
06/09/25 07:15 06/09/25 07:15 06/09/25 07:15 06/09/25 07:15 06/09/25 07:15
I&O
06/08/25 06/09/25 06/10/25
06:59 06:59 06:59
Intake Total 480 / 480
Balance 480 / 480
[2025-06-09 09:47] VITALS: BMI 18.6
[2025-06-09 10:00] LABS: HDL Cholesterol 49 mg/dl; LDL Cholesterol, Calculated 104 mg/dl; Very Low Density Lipoprotein 21 mg/dl (0-30)
[2025-06-09 10:36] LABS: Ferritin 126.0 ng/ml (11.1-264.0)
[2025-06-09 11:07] LABS: Folate 5.0 ng/ml (2.76-20); Vitamin B12 449 pg/ml (239-931)
[2025-06-09 11:50] LABS: Glucose - Point of Care 227 mg/dl (70-99)
[2025-06-09 12:07] VITALS: BP 119/51; PULSE 63; O2SAT 98
[2025-06-09 12:08] VITALS: BP 119/51; PULSE 64; O2SAT 98
[2025-06-09] MEDS: VITAMIN B1 100 MG PO (12:52)
[2025-06-09] MEDS: NOVOLOG FLEXPEN-LOW RESISTANCE 2 UNITS SC (14:13)
[2025-06-09 15:02] VITALS: BP 92/50
[2025-06-09 17:17] LABS: Glucose - Point of Care 123 mg/dl (70-99)
[2025-06-09] MEDS: LIPITOR 40 MG PO (17:27)
[2025-06-09 21:17] LABS: Glucose - Point of Care 101 mg/dl (70-99)
[2025-06-09] MEDS: SENOKOT 17.2 MG PO (22:09)
[2025-06-09 23:28] VITALS: BP 150/67
[2025-06-10 07:47] VITALS: BP 126/70
[2025-06-10 08:07] LABS: Glucose - Point of Care 108 mg/dl (70-99)
[2025-06-10] MEDS: NOVOLOG FLEXPEN-LOW RESISTANCE SC ×3 (09:07→16:38)
[2025-06-10] MEDS: HEPARIN 5000 UNITS SC ×4 (09:21→23:44)
[2025-06-10] MEDS: ZYRTEC 10 MG PO (09:21)
[2025-06-10] MEDS: LOW STRENGTH ASPIRIN 81 MG PO (09:21)
[2025-06-10] MEDS: VITAMIN B1 100 MG PO (09:21)
[2025-06-10] MEDS: PROZAC 20 MG PO (09:28)
--- NOTE | 2025-06-10 09:37 | W.PN.HOSP.TC ---
Today's Communication/Plan
-
dc
Assessment / Plan
Assessment / Plan
Physical Exam
General: Well Developed, Well Nourished and No Apparent Distress
HEENT: NormoCephalic, Moist mucous membranes and Atraumatic
Respiratory: Clear
Cardiac: S1/S2 and Regular Rhythm
GI: Soft, Non Tender, Non Distended and Normal Bowel Sounds
Rectal: Deferred by Provider
Musculoskeletal: No Clubbing, No Cyanosis and No Edema
Skin: Warm and IV/Catheter Site
Neuro: Awake, Alert but disoriented to time, place and person at times, and Nonfocal/grossly intact
Psych: Calm
#change in mental status
Abrupt worsening of mental status in a patient with recently diagnosed dementia and large right MCA ischemic stroke
Per neurologist: Unclear if the patient's mental status change is variable due to presumed vascular dementia
Head CT: Large wedge-shaped region of near CSF density involving the right parietal, occipital, and temporal lobes, appearance compatible with an old right MCA infarct.
Small focus of CSF density in the right superior medial cerebellar hemisphere, compatible with old infarct.
No evidence for acute intracranial abnormality.
-Started on Thiamine. c/w statin & aspirin.
Seen by neurology, given Thiamin.
- Consult case management
- Consulted PT
#acute kidney injury
BUN 36, creat 1.4, Est CrCl 29, eGFR 37.33
- IVF given in ED
- monitoedr BMP
#diabetes mellitus
- continue metformin
#Hx frontal CVA 02/2025
#hyperlipidemia
- continue aspirin
- restarted atorvastatin (LFTs have normalized)
#depression
- continue fluoxetine
#GERD
- continue famotidine
Code status: DNR
DVT prophylaxis: heparin sq
Total discharge time spent to see the patient, examine the patient, review lab results and data, discuss discharge plan with patient, nursing staff around 65 minutes
Anticipated Discharge: Today
Subjective/Interval History
-
Date of Service: June 10, 2025
Mild confusion this morning
no chest sethi
Has low back pain
No sob
Objective Data
-
Vital Signs:
Vital Signs
Temp Pulse Resp BP Pulse Ox
98.6 F 63 17 126/70 99
06/10/25 07:47 06/10/25 07:47 06/10/25 07:47 06/10/25 07:47 06/10/25 07:47
I&O
06/09/25 06/10/25 06/11/25
06:59 06:59 06:59
Intake Total 480 / 480 120 / 120
Balance 480 / 480 120 / 120
[2025-06-10 11:38] LABS: Glucose - Point of Care 111 mg/dl (70-99)
--- NOTE | 2025-06-10 12:30 | PN.CDI ---
Addendum entered and electronically signed by Ochoa Amezcua MD 06/10/25 13:06:
moderate protein calorie malnutrition of chronic disease
Original Note:
CDI
- -
CDI:
Physician Documentation Request
Admit Date: 06/08/25 16:50
Dear Doctor Seven,
06/09 notes and assessment state ' Subcutaneous loss over rib cage - mild, orbital -mild. Muscle loss over clavicle- mild... Pt observed with orbital hollowiness, clavicle protrusion and ribs showing - this meets ASPEN and AND criteria for
moderate protein calorie malnutrition of chronic disease. '
Based on the above information and your assessment, which of the following most accurately represents the patient's nutritional status?
Malnutrition (specify if mild, moderate or severe)
No nutritional deficiency
Other (please specify)
[place] Criteria ([facility] Hospitalist 2017)
2 or more criteria must be present for either
non severe or severe malnutrition
Note that the criteria differs related to the
presence of an acute or chronic illness
Acute Illness Chronic Illness
Energy Intake Non Severe: <75% for >7 days Non Severe: <75% for >1 month
Severe: <50% for >5 days Severe: <75% for >1 month
Weight Loss Non Severe: 1-2% over 1 week Non Severe: 5% over 1 month
5% over 1 month 7.5% over 3 months
7.5% over 3 months 10% over 6 months
1 year N/A 20% over 1 year
Severe: >2% over 1 week Severe: >5% over 1 month
>5% over 1 month >7.5% over 3 months
>7.5% over 3 months >10% over 6 months
1 year N/A >20% over 1 year
Body Fat Non Severe: Mild Decrease Non Severe: Mild Loss
Severe: Moderate Decrease Severe: Severe Loss
Muscle Mass Non Severe: Mild Decrease Non Severe: Mild Loss
Severe: Moderate Decrease Severe: Severe Loss
Fluid Accumulation Non Severe: Mild Accumulation Non Severe: Mild Accumulation
Severe: Moderate to severe Severe: Moderate to severe
accumulation accumulation
Reduced Wool Handler Strength Non Severe: N/A Non Severe: N/A
Severe: Measurably reduced Severe: Measurably reduced
Use of terms such as suspected, likely, concern for, or probable (associated with a specific diagnosis that is being evaluated, monitored, or treated as if it exists) are acceptable and can be coded in the inpatient setting, when documented at the
time of discharge.
Thank you,
Jossie Welsh RN, BSN
CDI Specialist
tiger text
Please use your independent medical judgment in providing your response.
--- NOTE | 2025-06-10 12:41 | PN.CDI ---
Addendum entered and electronically signed by Ochoa Amezcua MD 06/10/25 13:08:
ENRIQUE due to rising creatinine
Original Note:
CDI
- -
CDI:
Physician Documentation Request
Admit Date: 06/08/25 16:50
Dear Doctor Seven,
Progress notes include a diagnosis of acute kidney injury
Creatinine results:
Laboratory Tests
06/08/25 06/09/25
11:32 05:14
Creatinine 1.4 H 1.1 H
Criteria for ENRIQUE*
1 Increase in serum creatinine by > or = to 0.3 mg/dL (> or = to 26.5 micromol/L) within 48 hours, OR
2 Increase in serum creatinine to > or = to 1.5 times baseline, which is known or presumed to have occurred within 7 days, OR
3 Urine volume < 0.5 nL/kg/hour for six hours
Based on the above information and the recognized standard for ENRIQUE could you please verify this diagnoses is still accurate and reflective of the patient�s condition to ensure quality of the medical record.
Please clarify in the Progress Notes:
�ENRIQUE is/was present and is a clinical diagnosis based on (please include this additional support in the medical record)
�After study ENRIQUE has been ruled out
�Other
Use of terms such as suspected, likely, concern for, or probable (associated with a specific diagnosis that is being evaluated, monitored, or treated as if it exists) are acceptable and can be coded in the inpatient setting, when documented at the
time of discharge.
Thank you,
Jossie Welsh RN, BSN
CDI Specialist
tiger text
Please use your independent medical judgment in providing your response.
--- NOTE | 2025-06-10 13:10 | CM ---
Addendum entered by Regine Knox 06/10/25 16:15:
[facility] authorization for admission to [facility] approved by Yumiko at [facility]. Auth #[id number] for DOS 06/10-06/15/2025.
Pt's son will transport to the facility.
[facility] Report: [phone]
[facility]
Original Note:
Pt is cleared for discharge today to [facility].
BILLY spoke with pt's son who asked that a assembler movement visit her prior to discharge. Call placed to request a visit, previously seen by Time Recorderbang Stokes will ensure pt is seen by a assembler movement later this afternoon prior to discharge.
[facility] authorization for transfer to [facility] in progress.
--- NOTE | 2025-06-10 15:46 | W.DCSUMMARY ---
Discharge Summary
Discharge Data
Date of Admission: 06/08/25
Date of Discharge: 06/11/25
-
Pending Results: No
Hospital Course
84 years old female presented to the emergency room for evaluation of worsening confusion. She was brought in by her son who stated that she continued to have confusion, memory issue and visual hallucinations. Her family requested social work
evaluation for placement. Patient was evaluated by neurologist. It was unclear if the patient's mental status change was variable due to presumed vascular dementia related to large right MCA ischemic stroke. She did not have significant metabolic
abnormalities. Liver enzymes were normal. She was given thiamine and placed back on atorvastatin. Aspirin was continued but decreased to 81 mg to avoid gastritis. Repeat head scan showed large wedge-shaped region of near CSF density involving
the right parietal, occipital and temporal lobes compatible with old right MCA infarct and other chronic changes. Patient was noted to have mild acute kidney injury and her kidney function improved with hydration. Vitamin B-12 level and folate were
normal. TSH was normal. Patient remained hemodynamically stable, tolerated diet but she continued to have confusion at times. No agitation noted. Physical therapy recommended [facility] facility placement. commercial construction project manager was involved in
discharge planning. Patient was discharged to alf in a stable condition.
Discharge Plan
-
Patient Disposition: Snf/SNF
Discharge Diagnosis/Procedures: Abrupt worsening of mental status in a patient with recently diagnosed dementia and large right MCA ischemic stroke
Seen by neurology
Continue atorvastatin
Continue aspirin
Thiamine
Condition: Fair
Diet: As tolerated
Referrals:
Meir Mendez DO [Family Provider, Nephrology]
Dav Villafana MD [Active, Neurology] - in three to four weeks
Prescriptions:
New
atorvastatin 40 mg Tablet
40 mg PO QPM Qty: 30 0RF
aspirin 81 mg Tablet,Chewable
81 mg PO DAILY Qty: 30 0RF
melatonin 5 mg Tablet
5 mg PO HSPRN PRN (Reason: insomnia) Qty: 10 0RF
acetaminophen [Tylenol Extra Strength] 500 mg Tablet
1,000 mg PO Q6HPRN PRN (Reason: mild to mod pain) Qty: 10 0RF
thiamine mononitrate (vit B1) 100 mg Tablet
100 mg PO DAILY Qty: 10 0RF
Continued
cetirizine [Zyrtec] 10 mg Tablet
10 mg PO DAILY
famotidine [Pepcid] 20 mg Tablet
20 mg PO DAILY
fluoxetine [Prozac] 20 mg Capsule
20 mg PO DAILY
metformin 500 mg Tablet Extended Release 24 Hr
500 mg PO DAILY
Changed
sennosides [senna] 8.6 mg Tablet
17.2 mg PO HS Qty: 0 0RF
Discontinued
atorvastatin [Lipitor] 80 mg Tablet
80 mg PO DAILY
aspirin 325 mg Tablet
325 mg PO DAILY
Discharge Orders:
Discharge Patient (As Directed); Ordered 06/10/25
Ordered By: Ochoa Amezcua
Discharge Date and Time
Discharge Date/Time: 06/11/25 12:36
Print Language: SUDANESE
[2025-06-10 15:49] VITALS: BP 99/45
[2025-06-10 16:37] LABS: Glucose - Point of Care 140 mg/dl (70-99)
[2025-06-10] MEDS: LIPITOR 40 MG PO (17:08)
[2025-06-10 21:04] LABS: Glucose - Point of Care 184 mg/dl (70-99)
[2025-06-10] MEDS: NOVOLOG FLEXPEN-LOW RESISTANCE 1 UNITS SC (21:19)
[2025-06-10] MEDS: SENOKOT 17.2 MG PO (21:22)
[2025-06-10 23:22] VITALS: BP 119/56
[2025-06-11 03:09] LABS: Glucose - Point of Care 104 mg/dl (70-99)
[2025-06-11 07:00] VITALS: BP 126/69
[2025-06-11] MEDS: VITAMIN B1 100 MG PO (07:29)
[2025-06-11] MEDS: LOW STRENGTH ASPIRIN 81 MG PO (07:29)
[2025-06-11] MEDS: PROZAC 20 MG PO (07:29)
[2025-06-11] MEDS: HEPARIN 5000 UNITS SC (07:29)
[2025-06-11] MEDS: ZYRTEC 10 MG PO (07:29)
[2025-06-11 08:05] LABS: Glucose - Point of Care 107 mg/dl (70-99)
--- NOTE | 2025-06-11 08:25 | W.PN.HOSP.TC ---
Today's Communication/Plan
-
Await discharge
Assessment / Plan
Assessment / Plan
Physical Exam
General: Well Developed, Well Nourished and No Apparent Distress
HEENT: NormoCephalic, Moist mucous membranes and Atraumatic
Respiratory: Clear
Cardiac: S1/S2 and Regular Rhythm
GI: Soft, Non Tender, Non Distended and Normal Bowel Sounds
Rectal: Deferred by Provider
Musculoskeletal: No Clubbing, No Cyanosis and No Edema
Skin: Warm and IV/Catheter Site
Neuro: Awake, Alert but disoriented to time, place and person at times, and Nonfocal/grossly intact
Psych: Calm
#change in mental status
Abrupt worsening of mental status in a patient with recently diagnosed dementia and large right MCA ischemic stroke
Per neurologist: Unclear if the patient's mental status change is variable due to presumed vascular dementia
Head CT: Large wedge-shaped region of near CSF density involving the right parietal, occipital, and temporal lobes, appearance compatible with an old right MCA infarct.
Small focus of CSF density in the right superior medial cerebellar hemisphere, compatible with old infarct.
No evidence for acute intracranial abnormality.
-Started on Thiamine. c/w statin & aspirin.
Seen by neurology, given Thiamin.
- Consult case management
- Consulted PT
#acute kidney injury
BUN 36, creat 1.4, Est CrCl 29, eGFR 37.33
- IVF given in ED
- monitoedr BMP
#diabetes mellitus
- continue metformin
#Hx frontal CVA 02/2025
#hyperlipidemia
- continue aspirin
- restarted atorvastatin (LFTs have normalized)
#depression
- continue fluoxetine
#GERD
- continue famotidine
Code status: DNR
DVT prophylaxis: heparin sq
Total discharge time spent to see the patient, examine the patient, review lab results and data, discuss discharge plan with patient, nursing staff around 65 minutes
Anticipated Discharge: Today
Subjective/Interval History
-
Date of Service: June 11, 2025
More alert today
Objective Data
-
Labs:
Laboratory Results
06/11/25
07:29
Sodium Pending
Potassium Pending
Chloride Pending
Carbon Dioxide Pending
BUN Pending
Creatinine Pending
Glucose Pending
Calcium Pending
Vital Signs:
Vital Signs
Temp Pulse Resp BP Pulse Ox
98.0 F 58 17 119/56 99
06/10/25 23:22 06/10/25 23:22 06/10/25 23:22 06/10/25 23:22 06/10/25 23:22
I&O
06/10/25 06/11/25 06/12/25
06:59 06:59 06:59
Intake Total 120 / 120 1440 / 1440
Balance 120 / 120 1440 / 1440
[2025-06-11 08:40] LABS: Blood Urea Nitrogen 23 mg/dl (7-17); Calcium 9.6 mg/dl (8.4-10.2); Carbon Dioxide 27 mmol/L (22-30); Chloride 106 mmol/L (98-107); Estimated Creatinine Clearance 35 ml/min; Glucose 105 mg/dl (70-99); Potassium 4.5 mmol/L (3.5-5.1); Sodium 139 mmol/L (135-145); eGFR 55.90
--- NOTE | 2025-06-11 09:31 | CM ---
Pt for transfer to [facility] pending financial clearance by the [facility] business office.
CM spoke with Severiano at [facility] who will contact family regarding financial matters prior to transfer to [facility] today.
Await update from Severiano for transfer.
Pt's son will transport at discharge once [facility] gives the final approval for transfer.
[facility] Report: [phone]
[facility]
--- NOTE | 2025-06-11 10:56 | PN.CDI ---
Addendum entered and electronically signed by Ochoa Amezcua MD 06/11/25 11:11:
Baseline vascular Dementia
Original Note:
CDI
- -
CDI:
Physician Documentation Request
Admit Date: 06/08/25 16:50
Dear Doctor Seven,
Patient presented to the ED for increase confusion.
Attending update note 06/08 states 'Worsening confusion likely Metabolic encephalatrophy due to ENRIQUE and dehydration'
Neuro states 'Unclear if the patient's mental status change is variable due to presumed vascular dementia'
Based on the above, could you clarify the most likely etiology of the presenting confusion/altered mental status.
Metabolic Encephalopathy
Dementia with acute delirium
Baseline vascular Dementia
vascular dementia with metabolic encephalopathy
Other
Use of terms such as suspected, likely, concern for, or probable (associated with a specific diagnosis that is being evaluated, monitored, or treated as if it exists) are acceptable and can be coded in the inpatient setting, when documented at the
time of discharge.
Thank you,
Jossie Welsh RN, BSN
CDI Specialist
tiger text
Please use your independent medical judgment in providing your response.
[2025-06-11 11:46] VITALS: BP 100/53
[2025-06-11 11:46] LABS: Glucose - Point of Care 164 mg/dl (70-99)
[2025-06-11] MEDS: NOVOLOG FLEXPEN-LOW RESISTANCE 1 UNITS SC (11:48)
== END 2025-06-11 12:36 ==
LOC: 3 WEST ACU 16:50
PROVIDERS: Nurse Practitioner; Nurse Practitioner Family; ADMITTING PHYSICIAN Internal Medicine; ATTENDING PHYSICIAN Internal Medicine; CONSULT PHYSICIAN Psychiatry & Neurology Neurology; EMERGENCY PHYSICIAN Student in an Organized Health Care Education/Training Program; FAMILY PHYSICIAN Internal Medicine Nephrology
DX: R41.82 Altered mental status, unspecified (principal); N17.9 Acute kidney failure, unspecified; I69.319 Unspecified symptoms and signs involving cognitive functions following cerebral infarction; F03.90 Unspecified dementia, unspecified severity, without behavioral disturbance, psychotic disturbance, mood disturbance, and anxiety; E86.0 Dehydration; E11.9 Type 2 diabetes mellitus without complications; E78.00 Pure hypercholesterolemia, unspecified; F32.A Depression, unspecified; K21.9 Gastro-esophageal reflux disease without esophagitis; Z66 Do not resuscitate; Z96.653 Presence of artificial knee joint, bilateral; Z87.891 Personal history of nicotine dependence; F01.53 Vascular dementia, unspecified severity, with mood disturbance; Z79.84 Long term (current) use of oral hypoglycemic drugs; Z79.899 Other long term (current) drug therapy; M54.50 Low back pain, unspecified; Z86.73 Personal history of transient ischemic attack (TIA), and cerebral infarction without residual deficits
CPT/HCPCS: 70450; 80048; 80053; 80061; 81003; 82607; 82728; 82746; 82962; 84443; 85025; 96360; 97162; 97166; 99285; G0378